=== PATIENT | male | born 1985 | race Caucasian/White ===

== ENCOUNTER 2019-04-22 12:17 | Emergency (ER) | payer MEDICARE, MEDICAID ==
[~2019-04-22] VITALS: Ht 170.2 cm; Wt 90.5 kg
[~2019-04-22 12:17] MED LIST: DIVA-76 PO; FERR-89 PO; LEVE250T55 PO; OMEP20 PO; QUET200T PO
[2019-04-22] MEDS ORDERED: ACETAMINOPHEN 500 MG TABLET PO ONE (12:30)
[2019-04-22 12:43] LABS: BASOPHILS % (AUTO) 0.3 % (0.0-2.0); EOSINOPHILS % (AUTO) 0.5 % (1.0-6.0); HEMATOCRIT 45.5 % (41-53); HEMOGLOBIN 15.8 g/dL (13.5-17.5); LYMPHOCYTES # (AUTO) 1.3 K/uL (1.0-4.8); LYMPHOCYTES % (AUTO) 23.7 % (22.0-44.0); MEAN CORPUSCULAR HEMOGLOBIN 30.5 pg (26.0-34.0); MEAN CORPUSCULAR HGB CONC 34.7 G/dL (31.0-37.0); MEAN CORPUSCULAR VOLUME 88 fL (80-100); MONOCYTES # (AUTO) 0.3 K/uL (0.1-1.0); MONOCYTES % (AUTO) 5.3 % (2.0-9.0); NEUTROPHILS # (AUTO) 3.9 K/uL (1.8-7.7); NEUTROPHILS % (AUTO) 70.2 % (40.0-70.0); PLATELET COUNT (AUTO) 192 K/uL (150-450); RED BLOOD CELL COUNT(AUTO) 5.17 MIL/uL (4.50-5.90); RED CELL DISTRIBUTION WIDTH 13.4 % (11.5-14.5)
[2019-04-22 12:50] LABS: ANION GAP 8 mmol/L (8-16); CALCIUM, TOTAL 9.4 mg/dL (8.8-10.5); CARBON DIOXIDE 28 mmol/L (22-29); CHLORIDE 102 mmol/L (98-107); CREATININE 0.83 mg/dL (0.60-1.30); GLOMERULAR FILTR. RATE CALC > 60 mL/min (>60); GLUCOSE,RANDOM 92 mg/dL (70-110); POTASSIUM 4.4 mmol/L (3.5-5.1); SODIUM SERUM 138 mmol/L (136-145); UREA NITROGEN, BLOOD 11 mg/dL (7-18)
[2019-04-22 12:56] LABS: ALANINE AMINOTRANSFERASE 57 U/L (12-78); ALBUMIN 3.8 g/dL (3.4-5.0); ALKALINE PHOSPHATASE 92 U/L (46-116); ASPARTATE AMINOTRANSFERASE 25 U/L (15-37); BILIRUBIN,TOTAL 0.5 mg/dL (0.1-1.0); TOTAL PROTEIN, SERUM 7.9 g/dL (6.4-8.2)
[2019-04-22 13:10] LABS: APPEARANCE,URINE CLEAR (CLEAR); BILIRUBIN,URINE NEGATIVE (NEGATIVE); GLUCOSE, URINE (UA) NEGATIVE (NEGATIVE); KETONES,URINE NEGATIVE (NEGATIVE); LEUKOCYTE ESTERASE ,URINE NEGATIVE (NEGATIVE); NITRATE,URINE NEGATIVE (NEGATIVE); OCCULT BLOOD,URINE NEGATIVE (NEGATIVE); PROTEIN,URINE NEGATIVE (NEGATIVE); UROBILINOGEN,URINE 0.2 mg/dL (<=1.0)
[2019-04-22 13:15] LABS: AMPHET/METH SCREEN,URINE NEGATIVE (NEGATIVE); BARBITURATE SCREEN, URINE NEGATIVE (NEGATIVE); BENZODIAZEPINES SCREEN,URINE NEGATIVE (NEGATIVE); CANNABINOID SCREEN,URINE NEGATIVE (NEGATIVE); COCAINE SCREEN,URINE NEGATIVE (NEGATIVE); METHADONE SCREEN, URINE NEGATIVE (NEGATIVE); OPIATE SCREEN,URINE NEGATIVE (NEGATIVE)
[2019-04-22 13:18] LABS: PHENCYCLIDINE SCREEN,URINE NEGATIVE (NEGATIVE)
[2019-04-22 15:44] VITALS: BP 108/64
== END 2019-04-22 16:00 | disposition home or self-care (01) ==
LOC: EMS 12:19
DX: R56.9 Unspecified convulsions (principal); E03.9 Hypothyroidism, unspecified; I10 Essential (primary) hypertension; K21.9 Gastro-esophageal reflux disease without esophagitis; F31.9 Bipolar disorder, unspecified; F41.9 Anxiety disorder, unspecified; F20.9 Schizophrenia, unspecified; Z91.011 Allergy to milk products
CPT/HCPCS: 36415; 70450; 80053; 80307; 81003; 85025; 99284; G0480

== ENCOUNTER 2019-04-25 01:54 | Inpatient (IN) | payer MEDICARE, MEDICAID ==
[~2019-04-25] VITALS: Ht 170.2 cm; Wt 87.1 kg
[2019-04-25] MEDS ORDERED: ACTIVATED CHARCOAL 50 GM/240 ML SUSPENSION PO ONE (02:00)
[2019-04-25 02:21] LABS: HEMOGLOBIN 16.1 g/dL (13.5-17.5); MEAN CORPUSCULAR HEMOGLOBIN 30.9 pg (26.0-34.0); MONOCYTES # (AUTO) 0.5 K/uL (0.1-1.0); NEUTROPHILS # (AUTO) 4.5 K/uL (1.8-7.7)
[2019-04-25 02:29] LABS: BASOPHILS % (AUTO) 0.5 % (0.0-2.0); EOSINOPHILS % (AUTO) 1.4 % (1.0-6.0); HEMATOCRIT 46.2 % (41-53); LYMPHOCYTES % (AUTO) 27.4 % (22.0-44.0); MEAN CORPUSCULAR HGB CONC 34.9 G/dL (31.0-37.0); MEAN CORPUSCULAR VOLUME 89 fL (80-100); MONOCYTES % (AUTO) 7.5 % (2.0-9.0); NEUTROPHILS % (AUTO) 63.2 % (40.0-70.0); PLATELET COUNT (AUTO) 188 K/uL (150-450); RED BLOOD CELL COUNT(AUTO) 5.21 MIL/uL (4.50-5.90); RED CELL DISTRIBUTION WIDTH 13.2 % (11.5-14.5)
[2019-04-25] MEDS ORDERED: LIDOCAINE 2% 5 ML JELLY TP ONE (02:30)
[2019-04-25] MEDS ORDERED: SODIUM CHLORIDE 0.9% 1,000 ML IV ONE (02:30)
[2019-04-25] MEDS ORDERED: LIDOCAINE 2% 5 ML JELLY ONE (02:31)
[2019-04-25 02:35] LABS: GLUCOSE,POINT OF CARE 101 MG/DL (70-110)
[2019-04-25 02:37] LABS: ANION GAP 10 mmol/L (8-16); CALCIUM, TOTAL 9.7 mg/dL (8.8-10.5); CARBON DIOXIDE 26 mmol/L (22-29); CHLORIDE 100 mmol/L (98-107); CREATININE 0.91 mg/dL (0.60-1.30); GLOMERULAR FILTR. RATE CALC > 60 mL/min (>60); GLUCOSE,RANDOM 110 mg/dL (70-110); SODIUM SERUM 136 mmol/L (136-145); UREA NITROGEN, BLOOD 12 mg/dL (7-18)
[2019-04-25 02:42] LABS: ALANINE AMINOTRANSFERASE 57 U/L (12-78); ALBUMIN 4.2 g/dL (3.4-5.0); ALKALINE PHOSPHATASE 101 U/L (46-116); ASPARTATE AMINOTRANSFERASE 29 U/L (15-37); BILIRUBIN,TOTAL 0.5 mg/dL (0.1-1.0); TOTAL PROTEIN, SERUM 8.5 g/dL (6.4-8.2)
[2019-04-25 02:43] LABS: ACETAMINOPHEN < 2 mcg/mL (10-30)
[2019-04-25 02:44] LABS: SALICYLATE 1.4 mg/dL (2.8-20.0)
[2019-04-25 06:37] LABS: ACETAMINOPHEN < 2 mcg/mL (10-30)
[2019-04-25] MEDS ORDERED: LEVE250T PO (06:41)
[2019-04-25 07:11] LABS: FREE T4 (FREE THYROXINE) 0.89 ng/dL (0.76-1.46); THYROID STIMULATING HORMONE 1.82 uIU/mL (0.36-3.74)
[2019-04-25 07:25] LABS: VALPROIC ACID < 3 mcg/mL (50-100)
[2019-04-25 08:36] LABS: APPEARANCE,URINE CLOUDY (CLEAR); BILIRUBIN,URINE NEGATIVE (NEGATIVE); GLUCOSE, URINE (UA) NEGATIVE (NEGATIVE); KETONES,URINE TRACE mg/dL (NEGATIVE); LEUKOCYTE ESTERASE ,URINE NEGATIVE (NEGATIVE); NITRATE,URINE NEGATIVE (NEGATIVE); OCCULT BLOOD,URINE NEGATIVE (NEGATIVE); PH,URINE 5.5 (5.0-8.0); PROTEIN,URINE NEGATIVE (NEGATIVE); UROBILINOGEN,URINE 0.2 mg/dL (<=1.0)
[2019-04-25 08:42] LABS: AMPHET/METH SCREEN,URINE NEGATIVE (NEGATIVE); BARBITURATE SCREEN, URINE NEGATIVE (NEGATIVE); BENZODIAZEPINES SCREEN,URINE NEGATIVE (NEGATIVE); CANNABINOID SCREEN,URINE NEGATIVE (NEGATIVE); COCAINE SCREEN,URINE NEGATIVE (NEGATIVE); METHADONE SCREEN, URINE NEGATIVE (NEGATIVE); OPIATE SCREEN,URINE NEGATIVE (NEGATIVE); PHENCYCLIDINE SCREEN,URINE NEGATIVE (NEGATIVE)
[2019-04-25 09:20] LABS: BACTERIA,URINE None Seen /HPF (None Seen); RBC,URINE None Seen /HPF (0-2); SQUAMOUS EPITHELIAL CELL,UR Few /LPF (None Seen); WBC,URINE 0-2 /HPF (0-5)
[2019-04-25] MEDS ORDERED: ZOLPIDEM TARTRATE 10 MG TABLET PO PRN (10:15)
[2019-04-25] MEDS ORDERED: HALOPERIDOL 5 MG TABLET PO PRN (10:15)
[2019-04-25] MEDS ORDERED: LORazepam 2 MG TABLET PO PRN (10:15)
[2019-04-25] MEDS ORDERED: LEVE500T53 PO (14:53)
[2019-04-25 15:59] VITALS: BP 130/101
[2019-04-25] MEDS ORDERED: PNEUMOCOCCAL VACCINE POLYVALENT 0.5 ML VIAL [PPSV23] IM ONE (17:45)
[2019-04-25] MEDS ORDERED: INFLUENZA VIRUS VACCINE QVS 2019-20 (3YR+)/PF 60 MCG/0.5 ML SYRINGE IM ONE (17:45)
[2019-04-26] MEDS: LevETIRAcetam 500 MG TABLET PO SCH ×2 (08:23→16:37)
[2019-04-26 08:46] VITALS: BP 137/89
[2019-04-26] MEDS: QUEtiapine FUMARATE 25 MG TABLET PO SCH (10:46)
[2019-04-26] MEDS ORDERED: ALBUTEROL SULFATE HFA 90 MCG/PUFF 8 GM INHALER IH PRN (14:30)
[2019-04-26] MEDS ORDERED: GuaiFENesin/D-METHORPHAN [SUGAR-FREE] 200-20MG/10 ML SYRUP UDCUP PO PRN (14:30)
[2019-04-26] MEDS ORDERED: LOPERAMIDE HCL 2 MG CAPSULE PO PRN (14:30)
[2019-04-26] MEDS ORDERED: ONDANSETRON HCL 4 MG TABLET PO PRN (14:30)
[2019-04-26] MEDS ORDERED: IBUPROFEN 400 MG TABLET PO PRN (14:30)
[2019-04-26] MEDS ORDERED: MAG HYDROX/AL HYDROX/SIMETH ES 30 ML SUSPENSION UDCUP PO PRN (14:30)
[2019-04-26] MEDS ORDERED: PETROLATUM,WHITE 28 GM JELLY TP PRN (14:30)
[2019-04-26] MEDS ORDERED: NICOTINE 14 MG/24 HOUR PATCH TD PRN (14:30)
[2019-04-26] MEDS ORDERED: MAGNESIUM HYDROXIDE SUSPENSION 30 ML UDCUP PO PRN (14:30)
[2019-04-26] MEDS ORDERED: DOCUSATE SODIUM 100 MG CAPSULE PO PRN (14:30)
[2019-04-26] MEDS ORDERED: CloNIDine HCL 0.1 MG TABLET PO PRN (14:30)
[2019-04-26] MEDS ORDERED: ACETAMINOPHEN 325 MG TABLET PO PRN (14:30)
[2019-04-26 16:00] VITALS: BP 102/60
[2019-04-26 18:23] LABS: GLUCOMETER DEV NAME(LOC) 3EX.; GLUCOSE,POINT OF CARE 94 MG/DL (70-110)
[2019-04-26] MEDS: QUEtiapine FUMARATE 200 MG TABLET PO SCH (21:30)
[2019-04-27 06:19] VITALS: BP 122/71
[2019-04-27 08:30] VITALS: BP 143/100
[2019-04-27] MEDS: QUEtiapine FUMARATE 25 MG TABLET PO SCH (08:39)
[2019-04-27] MEDS: LevETIRAcetam 500 MG TABLET PO SCH (08:40)
[2019-04-27] MEDS: LevETIRAcetam 250 MG TABLET PO SCH (16:21)
[2019-04-27 17:00] VITALS: BP 126/71
[2019-04-27] MEDS: QUEtiapine FUMARATE 200 MG TABLET PO SCH (20:14)
[2019-04-28 03:43] VITALS: BP 112/65
[2019-04-28 08:30] VITALS: BP 99/58
[2019-04-28] MEDS: LevETIRAcetam 250 MG TABLET PO SCH (09:31)
[2019-04-28] MEDS: QUEtiapine FUMARATE 25 MG TABLET PO SCH (09:31)
[2019-04-28] MEDS ORDERED: QUET200T PO (11:37)
[2019-04-28] MEDS ORDERED: QUET25TA PO (11:37)
== END 2019-04-28 15:26 | disposition home or self-care (01) | DRG 885 ==
LOC: EMS 01:57 → 3EI 13:52
PROVIDERS: ADMIT Psychiatry & Neurology Child & Adolescent Psychiatry; ATTEND Psychiatry & Neurology Child & Adolescent Psychiatry
DX: F20.0 Paranoid schizophrenia (principal); E03.9 Hypothyroidism, unspecified; G40.909 Epilepsy, unspecified, not intractable, without status epilepticus; I10 Essential (primary) hypertension; F79 Unspecified intellectual disabilities; J44.9 Chronic obstructive pulmonary disease, unspecified; K21.9 Gastro-esophageal reflux disease without esophagitis; T39.1X2A Poisoning by 4-Aminophenol derivatives, intentional self-harm, initial encounter; F29 Unspecified psychosis not due to a substance or known physiological condition; F41.9 Anxiety disorder, unspecified; Z28.21 Immunization not carried out because of patient refusal; Y92.89 Other specified places as the place of occurrence of the external cause; Z83.3 Family history of diabetes mellitus; Z82.49 Family history of ischemic heart disease and other diseases of the circulatory system; Z91.011 Allergy to milk products
CPT/HCPCS: 70450; 72125; 84439; 84443; 93005; G0480; G0481; G0482

== ENCOUNTER 2019-05-17 18:45 | Emergency (ER) | payer MEDICARE, MEDICAID ==
[~2019-05-17] VITALS: Ht 172.7 cm; Wt 81.8 kg
[~2019-05-17 18:45] MED LIST changes: -DIVA-76 PO; -FERR-89 PO; -LEVE250T55 PO; +LEVE500T53 PO; -OMEP20 PO; +QUET25TA PO
[2019-05-17 20:57] VITALS: BP 120/100
[2019-05-17 21:51] LABS: APPEARANCE,URINE CLEAR (CLEAR); BILIRUBIN,URINE NEGATIVE (NEGATIVE); GLUCOSE, URINE (UA) NEGATIVE (NEGATIVE); KETONES,URINE NEGATIVE (NEGATIVE); LEUKOCYTE ESTERASE ,URINE NEGATIVE (NEGATIVE); NITRATE,URINE NEGATIVE (NEGATIVE); OCCULT BLOOD,URINE NEGATIVE (NEGATIVE); PROTEIN,URINE NEGATIVE (NEGATIVE)
[2019-05-17 21:55] LABS: AMPHET/METH SCREEN,URINE NEGATIVE (NEGATIVE); BARBITURATE SCREEN, URINE NEGATIVE (NEGATIVE); BENZODIAZEPINES SCREEN,URINE POSITIVE (NEGATIVE); CANNABINOID SCREEN,URINE NEGATIVE (NEGATIVE); COCAINE SCREEN,URINE NEGATIVE (NEGATIVE); METHADONE SCREEN, URINE NEGATIVE (NEGATIVE); OPIATE SCREEN,URINE NEGATIVE (NEGATIVE); PHENCYCLIDINE SCREEN,URINE NEGATIVE (NEGATIVE)
== END 2019-05-17 22:00 | disposition left against medical advice (07) ==
LOC: EMS 18:45
DX: G40.909 Epilepsy, unspecified, not intractable, without status epilepticus (principal); F31.9 Bipolar disorder, unspecified; F41.9 Anxiety disorder, unspecified; K21.9 Gastro-esophageal reflux disease without esophagitis; I10 Essential (primary) hypertension; E03.9 Hypothyroidism, unspecified; F20.9 Schizophrenia, unspecified; Z91.011 Allergy to milk products

== ENCOUNTER 2019-07-22 16:16 | Inpatient (IN) | payer MEDICARE, MEDICAID ==
[~2019-07-22] VITALS: Ht 170.2 cm; Wt 89.8 kg
[2019-07-22 18:46] LABS: BASOPHILS % (AUTO) 0.5 % (0.0-2.0); EOSINOPHILS % (AUTO) 1.2 % (1.0-6.0); HEMATOCRIT 46.4 % (41-53); HEMOGLOBIN 15.9 g/dL (13.5-17.5); LYMPHOCYTES # (AUTO) 2.1 K/uL (1.0-4.8); LYMPHOCYTES % (AUTO) 33.4 % (22.0-44.0); MEAN CORPUSCULAR HEMOGLOBIN 30.6 pg (26.0-34.0); MEAN CORPUSCULAR HGB CONC 34.3 G/dL (31.0-37.0); MEAN CORPUSCULAR VOLUME 89 fL (80-100); MONOCYTES # (AUTO) 0.5 K/uL (0.1-1.0); MONOCYTES % (AUTO) 8.2 % (2.0-9.0); NEUTROPHILS # (AUTO) 3.6 K/uL (1.8-7.7); NEUTROPHILS % (AUTO) 56.7 % (40.0-70.0); PLATELET COUNT (AUTO) 212 K/uL (150-450); RED CELL DISTRIBUTION WIDTH 13.3 % (11.5-14.5)
[2019-07-22 18:56] LABS: ALANINE AMINOTRANSFERASE 71 U/L (12-78); ALBUMIN 4.1 g/dL (3.4-5.0); ALKALINE PHOSPHATASE 97 U/L (46-116); ANION GAP 8 mmol/L (8-16); ASPARTATE AMINOTRANSFERASE 30 U/L (15-37); BILIRUBIN,TOTAL 0.4 mg/dL (0.1-1.0); CALCIUM, TOTAL 10.2 mg/dL (8.8-10.5); CARBON DIOXIDE 28 mmol/L (22-29); CHLORIDE 103 mmol/L (98-107); CREATININE 0.99 mg/dL (0.60-1.30); GLOMERULAR FILTR. RATE CALC > 60 mL/min (>60); GLUCOSE,RANDOM 91 mg/dL (70-110); POTASSIUM 4.2 mmol/L (3.5-5.1); SODIUM SERUM 139 mmol/L (136-145); TOTAL PROTEIN, SERUM 8.1 g/dL (6.4-8.2)
[2019-07-22 19:02] LABS: UREA NITROGEN, BLOOD 12 mg/dL (7-18)
[2019-07-22] MEDS ORDERED: HALOPERIDOL 5 MG TABLET PO PRN (20:00)
[2019-07-22] MEDS ORDERED: LORazepam 2 MG TABLET PO PRN (20:00)
[2019-07-22] MEDS ORDERED: ZOLPIDEM TARTRATE 10 MG TABLET PO PRN (20:00)
[2019-07-23] VITALS (9 sets, daily range): BP systolic 109–134; BP diastolic 64–88
[2019-07-23] MEDS ORDERED: PNEUMOCOCCAL VACCINE POLYVALENT 0.5 ML VIAL [PPSV23] IM ONE (04:45)
[2019-07-23] MEDS: LevETIRAcetam 250 MG TABLET PO SCH ×2 (11:00→16:36)
[2019-07-23] MEDS ORDERED: MIRTAZAPINE 15 MG TABLET PO SCH (21:00)
[2019-07-24 01:38] VITALS: BP 100/74
[2019-07-24 08:11] VITALS: BP 119/62
[2019-07-24] MEDS: LevETIRAcetam 250 MG TABLET PO SCH ×2 (08:47→16:29)
[2019-07-24] MEDS ORDERED: ARIPiprazole 5 MG TABLET PO SCH (09:00)
[2019-07-24 16:08] VITALS: BP 115/66
[2019-07-24] MEDS: MIRTAZAPINE 30 MG TABLET PO SCH (20:30)
[2019-07-25 05:58] VITALS: BP 111/67
[2019-07-25] MEDS: ARIPiprazole 10 MG TABLET PO SCH (08:27)
[2019-07-25] MEDS: LevETIRAcetam 250 MG TABLET PO SCH ×2 (08:27→16:33)
[2019-07-25 08:38] VITALS: BP 124/72
[2019-07-25] MEDS ORDERED: BISACODYL 5 MG EC TABLET PO PRN (09:00)
[2019-07-25 16:04] VITALS: BP 113/75
[2019-07-25] MEDS: MIRTAZAPINE 30 MG TABLET PO SCH (20:35)
[2019-07-26 01:07] VITALS: BP 122/71
[2019-07-26 08:06] VITALS: BP 117/74
[2019-07-26 08:39] LABS: APPEARANCE,URINE CLEAR (CLEAR); BILIRUBIN,URINE NEGATIVE (NEGATIVE); GLUCOSE, URINE (UA) NEGATIVE (NEGATIVE); KETONES,URINE NEGATIVE (NEGATIVE); LEUKOCYTE ESTERASE ,URINE NEGATIVE (NEGATIVE); NITRATE,URINE NEGATIVE (NEGATIVE); OCCULT BLOOD,URINE NEGATIVE (NEGATIVE); PH,URINE 5.5 (5.0-8.0); PROTEIN,URINE NEGATIVE (NEGATIVE); UROBILINOGEN,URINE 0.2 mg/dL (<=1.0)
[2019-07-26 08:44] LABS: AMPHET/METH SCREEN,URINE NEGATIVE (NEGATIVE); BARBITURATE SCREEN, URINE NEGATIVE (NEGATIVE); BENZODIAZEPINES SCREEN,URINE NEGATIVE (NEGATIVE); CANNABINOID SCREEN,URINE NEGATIVE (NEGATIVE); COCAINE SCREEN,URINE NEGATIVE (NEGATIVE); METHADONE SCREEN, URINE NEGATIVE (NEGATIVE); OPIATE SCREEN,URINE NEGATIVE (NEGATIVE); PHENCYCLIDINE SCREEN,URINE NEGATIVE (NEGATIVE)
[2019-07-26] MEDS: ARIPiprazole 10 MG TABLET PO SCH (08:48)
[2019-07-26] MEDS: LevETIRAcetam 250 MG TABLET PO SCH ×2 (08:48→16:29)
[2019-07-26 16:04] VITALS: BP 122/82
[2019-07-26] MEDS: MIRTAZAPINE 30 MG TABLET PO SCH (20:46)
[2019-07-27 06:21] VITALS: BP 124/85
[2019-07-27 08:10] VITALS: BP 140/90
[2019-07-27] MEDS: LevETIRAcetam 250 MG TABLET PO SCH (08:30)
[2019-07-27] MEDS ORDERED: ARIPiprazole 15 MG TABLET PO SCH (09:00)
[2019-07-27] MEDS ORDERED: MIRT30 PO (09:22)
[2019-07-27] MEDS ORDERED: ARIP15TA2 PO (09:22)
== END 2019-07-27 13:25 | disposition home or self-care (01) | DRG 885 ==
LOC: EMS 16:18 → 3EX 20:30 → B2X 21:30
PROVIDERS: ADMIT Psychiatry & Neurology Psychiatry; ATTEND Psychiatry & Neurology Psychiatry
DX: F25.1 Schizoaffective disorder, depressive type (principal); E03.9 Hypothyroidism, unspecified; E78.5 Hyperlipidemia, unspecified; F41.9 Anxiety disorder, unspecified; I10 Essential (primary) hypertension; J45.909 Unspecified asthma, uncomplicated; K59.00 Constipation, unspecified; R56.9 Unspecified convulsions; Z79.899 Other long term (current) drug therapy; Z87.891 Personal history of nicotine dependence; Z28.21 Immunization not carried out because of patient refusal
CPT/HCPCS: G0480

== ENCOUNTER 2019-07-30 16:05 | Emergency (ER) | payer MEDICARE, MEDICAID ==
[~2019-07-30] VITALS: Ht 172.7 cm; Wt 91.4 kg
[~2019-07-30 16:05] MED LIST changes: +ARIP15TA2 PO; +MIRT30 PO; -QUET200T PO; -QUET25TA PO
[2019-07-30] MEDS ORDERED: LevETIRAcetam 1,000 MG in DEXTROSE 5%-WATER 100 ML IV ONE (18:00)
[2019-07-30] MEDS ORDERED: LevETIRAcetam 500 MG TABLET PO ONE (18:00)
[2019-07-30 18:05] LABS: BASOPHILS % (AUTO) 0.5 % (0.0-2.0); EOSINOPHILS % (AUTO) 1.4 % (1.0-6.0); HEMATOCRIT 45.6 % (41-53); HEMOGLOBIN 16.1 g/dL (13.5-17.5); LYMPHOCYTES # (AUTO) 2.3 K/uL (1.0-4.8); MEAN CORPUSCULAR HEMOGLOBIN 31.4 pg (26.0-34.0); MEAN CORPUSCULAR HGB CONC 35.2 G/dL (31.0-37.0); MEAN CORPUSCULAR VOLUME 89 fL (80-100); MONOCYTES # (AUTO) 0.6 K/uL (0.1-1.0); MONOCYTES % (AUTO) 7.2 % (2.0-9.0); NEUTROPHILS # (AUTO) 5.1 K/uL (1.8-7.7); NEUTROPHILS % (AUTO) 62.9 % (40.0-70.0); RED BLOOD CELL COUNT(AUTO) 5.12 MIL/uL (4.50-5.90); RED CELL DISTRIBUTION WIDTH 13.3 % (11.5-14.5)
[2019-07-30 18:52] LABS: PLATELET COUNT (AUTO) 196 K/uL (150-450); PLATELET MORPHOLOGY COMMENT LARGE PLTS PRESENT
[2019-07-30 18:53] LABS: ANION GAP 8 mmol/L (8-16); CALCIUM, TOTAL 9.4 mg/dL (8.8-10.5); CARBON DIOXIDE 29 mmol/L (22-29); CHLORIDE 103 mmol/L (98-107); CREATININE 0.98 mg/dL (0.60-1.30); GLOMERULAR FILTR. RATE CALC > 60 mL/min (>60); GLUCOSE,RANDOM 100 mg/dL (70-110); POTASSIUM 4.1 mmol/L (3.5-5.1); SODIUM SERUM 140 mmol/L (136-145); UREA NITROGEN, BLOOD 16 mg/dL (7-18)
[2019-07-30 19:00] LABS: ALANINE AMINOTRANSFERASE 70 U/L (12-78); ALBUMIN 4.1 g/dL (3.4-5.0); ALKALINE PHOSPHATASE 105 U/L (46-116); BILIRUBIN,TOTAL 0.3 mg/dL (0.1-1.0); TOTAL PROTEIN, SERUM 7.9 g/dL (6.4-8.2)
[2019-07-30 19:11] LABS: ASPARTATE AMINOTRANSFERASE 37 U/L (15-37)
[2019-07-30 19:49] VITALS: BP 138/81
== END 2019-07-30 19:57 | disposition home or self-care (01) ==
LOC: EMS 16:07
DX: G40.909 Epilepsy, unspecified, not intractable, without status epilepticus (principal); E03.9 Hypothyroidism, unspecified; I10 Essential (primary) hypertension; K21.9 Gastro-esophageal reflux disease without esophagitis; F20.9 Schizophrenia, unspecified; F41.9 Anxiety disorder, unspecified; F31.9 Bipolar disorder, unspecified; F17.210 Nicotine dependence, cigarettes, uncomplicated; Z79.899 Other long term (current) drug therapy; Z91.011 Allergy to milk products; Z98.890 Other specified postprocedural states
CPT/HCPCS: 99406; J0712; J7060

== ENCOUNTER 2019-10-09 18:44 | Inpatient (IN) | payer MEDICARE, MEDICAID ==
[~2019-10-09] VITALS: Ht 170.2 cm; Wt 88.0 kg
[2019-10-09] MEDS ORDERED: LevETIRAcetam 500 MG TABLET PO ONE (19:15)
[2019-10-09 19:40] LABS: BASOPHILS % (AUTO) 0.5 % (0.0-2.0); EOSINOPHILS % (AUTO) 1.2 % (1.0-6.0); HEMATOCRIT 40.4 % (41-53); HEMOGLOBIN 13.6 g/dL (13.5-17.5); LYMPHOCYTES # (AUTO) 1.8 K/uL (1.0-4.8); LYMPHOCYTES % (AUTO) 30.5 % (22.0-44.0); MEAN CORPUSCULAR HEMOGLOBIN 30.3 pg (26.0-34.0); MEAN CORPUSCULAR HGB CONC 33.8 G/dL (31.0-37.0); MEAN CORPUSCULAR VOLUME 90 fL (80-100); MONOCYTES # (AUTO) 0.5 K/uL (0.1-1.0); MONOCYTES % (AUTO) 8.3 % (2.0-9.0); NEUTROPHILS # (AUTO) 3.5 K/uL (1.8-7.7); NEUTROPHILS % (AUTO) 59.5 % (40.0-70.0); PLATELET COUNT (AUTO) 203 K/uL (150-450); RED BLOOD CELL COUNT(AUTO) 4.51 MIL/uL (4.50-5.90); RED CELL DISTRIBUTION WIDTH 13.4 % (11.5-14.5)
[2019-10-09 19:53] LABS: ANION GAP 8 mmol/L (8-16); CALCIUM, TOTAL 8.9 mg/dL (8.8-10.5); CARBON DIOXIDE 28 mmol/L (22-29); CHLORIDE 105 mmol/L (98-107); CREATININE 0.82 mg/dL (0.60-1.30); GLOMERULAR FILTR. RATE CALC > 60 mL/min (>60); GLUCOSE,RANDOM 89 mg/dL (70-110); POTASSIUM 4.4 mmol/L (3.5-5.1); SODIUM SERUM 141 mmol/L (136-145); UREA NITROGEN, BLOOD 12 mg/dL (7-18)
[2019-10-09 19:59] LABS: ALANINE AMINOTRANSFERASE 41 U/L (12-78); ALBUMIN 3.7 g/dL (3.4-5.0); ALKALINE PHOSPHATASE 83 U/L (46-116); ASPARTATE AMINOTRANSFERASE 18 U/L (15-37); BILIRUBIN,TOTAL 0.2 mg/dL (0.1-1.0); TOTAL PROTEIN, SERUM 7.5 g/dL (6.4-8.2)
[2019-10-09 20:38] LABS: PLATELET MORPHOLOGY COMMENT GIANT PLTS PRESENT
[2019-10-09] MEDS ORDERED: LORazepam 2 MG TABLET PO PRN (21:15)
[2019-10-09] MEDS ORDERED: HALOPERIDOL 5 MG TABLET PO PRN (21:15)
[2019-10-09] MEDS ORDERED: ZOLPIDEM TARTRATE 10 MG TABLET PO PRN (21:15)
[2019-10-10] VITALS (11 sets, daily range): BP systolic 91–160; BP diastolic 57–90
[2019-10-10] MEDS ORDERED: LevETIRAcetam 250 MG TABLET PO SCH (01:30)
[2019-10-10] MEDS ORDERED: LORazepam 2 MG/ML VIAL IM PRN (01:30)
[2019-10-10 01:47] LABS: GLUCOMETER DEV NAME(LOC) 3E.I 2; GLUCOSE,POINT OF CARE 81 MG/DL (70-110)
[2019-10-10] MEDS: ARIPiprazole 15 MG TABLET PO SCH (09:51)
[2019-10-10] MEDS: LevETIRAcetam 250 MG TABLET PO SCH ×2 (09:51→16:24)
[2019-10-10] MEDS ORDERED: PETROLATUM,WHITE 28 GM JELLY TP PRN (12:30)
[2019-10-10] MEDS ORDERED: MAGNESIUM HYDROXIDE SUSPENSION 30 ML UDCUP PO PRN (12:30)
[2019-10-10] MEDS ORDERED: ALBUTEROL SULFATE HFA 90 MCG/PUFF 8 GM INHALER IH PRN (12:30)
[2019-10-10] MEDS ORDERED: GuaiFENesin/D-METHORPHAN [SUGAR-FREE] 200-20MG/10 ML SYRUP UDCUP PO PRN (12:30)
[2019-10-10] MEDS ORDERED: DOCUSATE SODIUM 100 MG CAPSULE PO PRN (12:30)
[2019-10-10] MEDS ORDERED: IBUPROFEN 400 MG TABLET PO PRN (12:30)
[2019-10-10] MEDS ORDERED: LOPERAMIDE HCL 2 MG CAPSULE PO PRN (12:30)
[2019-10-10] MEDS ORDERED: ACETAMINOPHEN 325 MG TABLET PO PRN (12:30)
[2019-10-10] MEDS ORDERED: CloNIDine HCL 0.1 MG TABLET PO PRN (12:30)
[2019-10-10] MEDS ORDERED: ONDANSETRON HCL 4 MG TABLET PO PRN (12:30)
[2019-10-10] MEDS ORDERED: MAG HYDROX/AL HYDROX/SIMETH ES 30 ML SUSPENSION UDCUP PO PRN (12:30)
[2019-10-10] MEDS ORDERED: NICOTINE 14 MG/24 HOUR PATCH TD PRN (12:30)
[2019-10-10] MEDS: MIRTAZAPINE 30 MG TABLET PO SCH (20:44)
[2019-10-11] MEDS: LevETIRAcetam 250 MG TABLET PO SCH ×2 (08:56→16:31)
[2019-10-11] MEDS: ARIPiprazole 15 MG TABLET PO SCH (08:56)
[2019-10-11] MEDS: ESCITALOPRAM OXALATE 10 MG TABLET PO SCH (10:49)
[2019-10-11 17:25] VITALS: BP 119/85
[2019-10-11] MEDS: MIRTAZAPINE 30 MG TABLET PO SCH (20:32)
[2019-10-12 09:05] VITALS: BP 112/70
[2019-10-12] MEDS: LevETIRAcetam 250 MG TABLET PO SCH (09:49)
[2019-10-12] MEDS: ARIPiprazole 15 MG TABLET PO SCH (09:49)
[2019-10-12] MEDS: ESCITALOPRAM OXALATE 10 MG TABLET PO SCH (09:49)
[2019-10-12] MEDS ORDERED: MIRT30 PO (11:57)
[2019-10-12] MEDS ORDERED: ESCI10TA PO (11:57)
[2019-10-12] MEDS ORDERED: ARIP15TA2 PO (11:57)
== END 2019-10-12 13:45 | disposition home or self-care (01) | DRG 885 ==
LOC: EMS 18:44 → 3EI 10-10 00:30
PROVIDERS: ADMIT Psychiatry & Neurology Psychiatry; ATTEND Psychiatry & Neurology Psychiatry
DX: F25.9 Schizoaffective disorder, unspecified (principal); R45.851 Suicidal ideations; G40.89 Other seizures; E03.9 Hypothyroidism, unspecified; K21.9 Gastro-esophageal reflux disease without esophagitis; I10 Essential (primary) hypertension; F17.200 Nicotine dependence, unspecified, uncomplicated; J45.909 Unspecified asthma, uncomplicated; F31.9 Bipolar disorder, unspecified; F41.9 Anxiety disorder, unspecified
CPT/HCPCS: G0480

== ENCOUNTER 2019-11-10 02:27 | Emergency (ER) | payer MEDICARE, MEDICAID ==
[~2019-11-10] VITALS: Ht 170.2 cm; Wt 68.2 kg
[~2019-11-10 02:27] MED LIST changes: +ESCI-8 PO
[2019-11-10 04:06] LABS: BASOPHILS % (AUTO) 1.4 % (0.0-2.0); EOSINOPHILS % (AUTO) 4.2 % (1.0-6.0); HEMOGLOBIN 15.3 g/dL (13.5-17.5); LYMPHOCYTES # (AUTO) 1.9 K/uL (1.0-4.8); LYMPHOCYTES % (AUTO) 30.2 % (22.0-44.0); MEAN CORPUSCULAR HEMOGLOBIN 30.1 pg (26.0-34.0); MEAN CORPUSCULAR HGB CONC 33.2 G/dL (31.0-37.0); MEAN CORPUSCULAR VOLUME 91 fL (80-100); MONOCYTES # (AUTO) 0.6 K/uL (0.1-1.0); MONOCYTES % (AUTO) 9.8 % (2.0-9.0); NEUTROPHILS # (AUTO) 3.4 K/uL (1.8-7.7); NEUTROPHILS % (AUTO) 54.4 % (40.0-70.0); PLATELET COUNT (AUTO) 198 K/uL (150-450); RED BLOOD CELL COUNT(AUTO) 5.07 MIL/uL (4.50-5.90); RED CELL DISTRIBUTION WIDTH 13.8 % (11.5-14.5)
[2019-11-10 04:26] LABS: ANION GAP 9 mmol/L (8-16); CALCIUM, TOTAL 9.4 mg/dL (8.8-10.5); CARBON DIOXIDE 29 mmol/L (22-29); CHLORIDE 105 mmol/L (98-107); CREATININE 0.73 mg/dL (0.60-1.30); GLOMERULAR FILTR. RATE CALC > 60 mL/min (>60); GLUCOSE,RANDOM 92 mg/dL (70-110); POTASSIUM 4.1 mmol/L (3.5-5.1); SODIUM SERUM 143 mmol/L (136-145)
[2019-11-10 04:33] LABS: ALANINE AMINOTRANSFERASE 49 U/L (12-78); ALBUMIN 4.1 g/dL (3.4-5.0); ALKALINE PHOSPHATASE 90 U/L (46-116); ASPARTATE AMINOTRANSFERASE 22 U/L (15-37); BILIRUBIN,TOTAL 0.4 mg/dL (0.1-1.0); TOTAL PROTEIN, SERUM 7.9 g/dL (6.4-8.2)
[2019-11-10 05:06] LABS: UREA NITROGEN, BLOOD 15 mg/dL (7-18)
[2019-11-10 05:25] VITALS: BP 147/94
== END 2019-11-10 06:18 | disposition home or self-care (01) ==
LOC: EMS 02:27
DX: R07.89 Other chest pain (principal); F20.9 Schizophrenia, unspecified; F41.9 Anxiety disorder, unspecified; J45.909 Unspecified asthma, uncomplicated; F31.9 Bipolar disorder, unspecified; K21.9 Gastro-esophageal reflux disease without esophagitis; I10 Essential (primary) hypertension; F17.210 Nicotine dependence, cigarettes, uncomplicated; Z91.011 Allergy to milk products
CPT/HCPCS: 93005

== ENCOUNTER 2020-09-28 20:55 | Emergency (ER) | payer MEDICARE, MEDICAID ==
[~2020-09-28] VITALS: Ht 165.1 cm; Wt 86.4 kg
[2020-09-28] MEDS ORDERED: TRAZ-252 PO (21:25)
[2020-09-28 21:51] LABS: BASOPHILS % (AUTO) 0.3 % (0.0-2.0); EOSINOPHILS % (AUTO) 2.8 % (1.0-6.0); HEMATOCRIT 40.2 % (41-53); HEMOGLOBIN 13.6 g/dL (13.5-17.5); LYMPHOCYTES # (AUTO) 1.7 K/uL (1.0-4.8); LYMPHOCYTES % (AUTO) 35.1 % (22.0-44.0); MEAN CORPUSCULAR HEMOGLOBIN 30.8 pg (26.0-34.0); MEAN CORPUSCULAR HGB CONC 33.8 G/dL (31.0-37.0); MEAN CORPUSCULAR VOLUME 91 fL (80-100); MONOCYTES # (AUTO) 0.5 K/uL (0.1-1.0); MONOCYTES % (AUTO) 10.4 % (2.0-9.0); NEUTROPHILS # (AUTO) 2.5 K/uL (1.8-7.7); NEUTROPHILS % (AUTO) 51.4 % (40.0-70.0); PLATELET COUNT (AUTO) 159 K/uL (150-450); RED BLOOD CELL COUNT(AUTO) 4.42 MIL/uL (4.50-5.90); RED CELL DISTRIBUTION WIDTH 13.3 % (11.5-14.5)
[2020-09-28 22:02] LABS: ANION GAP 10 mmol/L (8-16); CALCIUM, TOTAL 8.9 mg/dL (8.8-10.5); CARBON DIOXIDE 26 mmol/L (22-29); CHLORIDE 106 mmol/L (98-107); CREATININE 0.83 mg/dL (0.60-1.30); GLOMERULAR FILTR. RATE CALC > 60 mL/min (>60); GLUCOSE,RANDOM 107 mg/dL (70-110); POTASSIUM 3.8 mmol/L (3.5-5.1); SODIUM SERUM 142 mmol/L (136-145); UREA NITROGEN, BLOOD 16 mg/dL (7-18)
[2020-09-28 22:08] LABS: ALANINE AMINOTRANSFERASE 56 U/L (12-78); ALBUMIN 3.5 g/dL (3.4-5.0); ALKALINE PHOSPHATASE 94 U/L (46-116); ASPARTATE AMINOTRANSFERASE 27 U/L (15-37); BILIRUBIN,TOTAL 0.2 mg/dL (0.1-1.0); TOTAL PROTEIN, SERUM 7.2 g/dL (6.4-8.2)
[2020-09-28 22:59] LABS: AMPHET/METH SCREEN,URINE NEGATIVE (NEGATIVE); BARBITURATE SCREEN, URINE NEGATIVE (NEGATIVE); BENZODIAZEPINES SCREEN,URINE NEGATIVE (NEGATIVE); CANNABINOID SCREEN,URINE NEGATIVE (NEGATIVE); COCAINE SCREEN,URINE NEGATIVE (NEGATIVE); METHADONE SCREEN, URINE NEGATIVE (NEGATIVE); OPIATE SCREEN,URINE NEGATIVE (NEGATIVE)
[2020-09-28 23:06] LABS: PHENCYCLIDINE SCREEN,URINE NEGATIVE (NEGATIVE)
[2020-09-28 23:10] VITALS: BP 132/84
[2020-09-28] MEDS ORDERED: LevETIRAcetam 500 MG TABLET PO ONE (23:15)
== END 2020-09-28 23:30 | disposition home or self-care (01) ==
LOC: EMS 21:01
DX: G40.909 Epilepsy, unspecified, not intractable, without status epilepticus (principal); J45.909 Unspecified asthma, uncomplicated; F41.9 Anxiety disorder, unspecified; F31.9 Bipolar disorder, unspecified; K21.9 Gastro-esophageal reflux disease without esophagitis; I10 Essential (primary) hypertension; F20.9 Schizophrenia, unspecified; F17.210 Nicotine dependence, cigarettes, uncomplicated; Z91.018 Allergy to other foods
CPT/HCPCS: 36415; 80053; 80307; 85025; 99283; G0480

== ENCOUNTER 2020-09-29 21:23 | Emergency (ER) | payer MEDICARE, MEDICAID ==
[~2020-09-29] VITALS: Ht 170.2 cm; Wt 63.6 kg
[~2020-09-29 21:23] MED LIST changes: -ARIP15TA2 PO; -ESCI-8 PO; -MIRT30 PO; +TRAZ-252 PO
[2020-09-29 22:26] VITALS: BP 121/85
[2020-09-30 00:41] LABS: BASOPHILS % (AUTO) 0.5 % (0.0-2.0); EOSINOPHILS % (AUTO) 3.3 % (1.0-6.0); HEMATOCRIT 42.5 % (41-53); HEMOGLOBIN 14.5 g/dL (13.5-17.5); LYMPHOCYTES # (AUTO) 2.5 K/uL (1.0-4.8); LYMPHOCYTES % (AUTO) 43.1 % (22.0-44.0); MEAN CORPUSCULAR HEMOGLOBIN 30.9 pg (26.0-34.0); MEAN CORPUSCULAR VOLUME 91 fL (80-100); MONOCYTES # (AUTO) 0.6 K/uL (0.1-1.0); MONOCYTES % (AUTO) 10.3 % (2.0-9.0); NEUTROPHILS # (AUTO) 2.4 K/uL (1.8-7.7); NEUTROPHILS % (AUTO) 42.8 % (40.0-70.0); PLATELET COUNT (AUTO) 186 K/uL (150-450); RED BLOOD CELL COUNT(AUTO) 4.67 MIL/uL (4.50-5.90); RED CELL DISTRIBUTION WIDTH 13.4 % (11.5-14.5)
[2020-09-30 01:12] LABS: ANION GAP 8 mmol/L (8-16); CALCIUM, TOTAL 9.4 mg/dL (8.8-10.5); CARBON DIOXIDE 29 mmol/L (22-29); CHLORIDE 104 mmol/L (98-107); CREATININE 0.86 mg/dL (0.60-1.30); GLOMERULAR FILTR. RATE CALC > 60 mL/min (>60); GLUCOSE,RANDOM 99 mg/dL (70-110); POTASSIUM 4.2 mmol/L (3.5-5.1); SODIUM SERUM 141 mmol/L (136-145); UREA NITROGEN, BLOOD 14 mg/dL (7-18)
[2020-09-30 01:18] LABS: ALANINE AMINOTRANSFERASE 57 U/L (12-78); ALBUMIN 3.5 g/dL (3.4-5.0); ALKALINE PHOSPHATASE 103 U/L (46-116); ASPARTATE AMINOTRANSFERASE 29 U/L (15-37); BILIRUBIN,TOTAL 0.3 mg/dL (0.1-1.0); TOTAL PROTEIN, SERUM 7.6 g/dL (6.4-8.2)
== END 2020-09-30 02:33 | disposition home or self-care (01) ==
LOC: EMS 21:26
DX: G40.909 Epilepsy, unspecified, not intractable, without status epilepticus (principal); F41.9 Anxiety disorder, unspecified; F31.9 Bipolar disorder, unspecified; J45.909 Unspecified asthma, uncomplicated; K21.9 Gastro-esophageal reflux disease without esophagitis; I10 Essential (primary) hypertension; F20.9 Schizophrenia, unspecified; F17.210 Nicotine dependence, cigarettes, uncomplicated; Z91.018 Allergy to other foods
CPT/HCPCS: 80053; 85025; 99283; G0482

== ENCOUNTER 2020-10-01 21:40 | Emergency (ER) | payer MEDICARE, MEDICAID ==
[~2020-10-01] VITALS: Ht 170.2 cm; Wt 77.3 kg
[2020-10-02 00:08] VITALS: BP 150/90
== END 2020-10-01 23:10 | disposition home or self-care (01) ==
LOC: EMS 21:46
DX: F44.5 Conversion disorder with seizures or convulsions (principal)
CPT/HCPCS: 99283

== ENCOUNTER 2021-02-15 22:57 | Inpatient (IN) | payer MEDICARE, MEDICAID ==
[~2021-02-15] VITALS: Ht 170.2 cm; Wt 89.9 kg
[2021-02-16] VITALS (8 sets, daily range): BP systolic 108–127; BP diastolic 72–85
[2021-02-16 00:47] LABS: BASOPHILS % (AUTO) 0.5 % (0.0-2.0); EOSINOPHILS % (AUTO) 2.1 % (1.0-6.0); HEMATOCRIT 44.5 % (41-53); HEMOGLOBIN 15.1 g/dL (13.5-17.5); LYMPHOCYTES # (AUTO) 2.5 K/uL (1.0-4.8); LYMPHOCYTES % (AUTO) 34.6 % (22.0-44.0); MEAN CORPUSCULAR HEMOGLOBIN 30.7 pg (26.0-34.0); MEAN CORPUSCULAR VOLUME 90 fL (80-100); MONOCYTES # (AUTO) 0.8 K/uL (0.1-1.0); MONOCYTES % (AUTO) 10.6 % (2.0-9.0); NEUTROPHILS # (AUTO) 3.8 K/uL (1.8-7.7); NEUTROPHILS % (AUTO) 52.2 % (40.0-70.0); PLATELET COUNT (AUTO) 263 K/uL (150-450); RED BLOOD CELL COUNT(AUTO) 4.93 MIL/uL (4.50-5.90); RED CELL DISTRIBUTION WIDTH 13.1 % (11.5-14.5)
[2021-02-16 00:57] LABS: ANION GAP 10 mmol/L (8-16); CALCIUM, TOTAL 9.6 mg/dL (8.8-10.5); CARBON DIOXIDE 26 mmol/L (22-29); CHLORIDE 104 mmol/L (98-107); CREATININE 0.81 mg/dL (0.60-1.30); GLOMERULAR FILTR. RATE CALC > 60 mL/min (>60); GLUCOSE,RANDOM 96 mg/dL (70-110); POTASSIUM 3.9 mmol/L (3.5-5.1); SODIUM SERUM 140 mmol/L (136-145); UREA NITROGEN, BLOOD 16 mg/dL (7-18)
[2021-02-16 01:02] LABS: ALANINE AMINOTRANSFERASE 54 U/L (12-78); ALBUMIN 4.2 g/dL (3.4-5.0); ALKALINE PHOSPHATASE 108 U/L (46-116); ASPARTATE AMINOTRANSFERASE 25 U/L (15-37); BILIRUBIN,TOTAL 0.6 mg/dL (0.1-1.0); TOTAL PROTEIN, SERUM 8.7 g/dL (6.4-8.2)
[2021-02-16] MEDS ORDERED: LORazepam 2 MG TABLET PO ONE (02:15)
[2021-02-16] MEDS ORDERED: HALOPERIDOL LACTATE 5 MG/ML VIAL IVP ONE (02:15)
[2021-02-16 02:21] LABS: AMPHET/METH SCREEN,URINE NEGATIVE (NEGATIVE); BARBITURATE SCREEN, URINE NEGATIVE (NEGATIVE); BENZODIAZEPINES SCREEN,URINE NEGATIVE (NEGATIVE); CANNABINOID SCREEN,URINE NEGATIVE (NEGATIVE); COCAINE SCREEN,URINE NEGATIVE (NEGATIVE); METHADONE SCREEN, URINE NEGATIVE (NEGATIVE); OPIATE SCREEN,URINE NEGATIVE (NEGATIVE); PHENCYCLIDINE SCREEN,URINE NEGATIVE (NEGATIVE)
[2021-02-16 02:23] LABS: COVID AG,FIA SOURCE NASOPHARYNGEAL
[2021-02-16] MEDS ORDERED: HALOPERIDOL 5 MG TABLET ONE (02:34)
[2021-02-16] MEDS ORDERED: HALOPERIDOL 5 MG TABLET PO ONE (02:45)
[2021-02-16] MEDS ORDERED: ZOLPIDEM TARTRATE 10 MG TABLET PO PRN (03:15)
[2021-02-16] MEDS ORDERED: IBUPROFEN 400 MG TABLET PO PRN (08:00)
[2021-02-16] MEDS ORDERED: DOCUSATE SODIUM 100 MG CAPSULE PO PRN (08:00)
[2021-02-16] MEDS ORDERED: MAGNESIUM HYDROXIDE SUSPENSION 30 ML UDCUP PO PRN (08:00)
[2021-02-16] MEDS ORDERED: ACETAMINOPHEN 325 MG TABLET PO PRN (08:00)
[2021-02-16] MEDS ORDERED: GuaiFENesin/D-METHORPHAN [SUGAR-FREE] 200-20MG/10 ML SYRUP UDCUP PO PRN (08:00)
[2021-02-16] MEDS ORDERED: PETROLATUM,WHITE 28 GM JELLY TP PRN (08:00)
[2021-02-16] MEDS ORDERED: ALBUTEROL SULFATE HFA 90 MCG/PUFF 8 GM INHALER IH PRN (08:00)
[2021-02-16] MEDS ORDERED: ONDANSETRON HCL 4 MG TABLET PO PRN (08:00)
[2021-02-16] MEDS ORDERED: NICOTINE 14 MG/24 HOUR PATCH TD PRN (08:00)
[2021-02-16] MEDS ORDERED: MAG HYDROX/AL HYDROX/SIMETH ES 30 ML SUSPENSION UDCUP PO PRN (08:00)
[2021-02-16] MEDS ORDERED: LOPERAMIDE HCL 2 MG CAPSULE PO PRN (08:00)
[2021-02-16] MEDS ORDERED: CloNIDine HCL 0.1 MG TABLET PO PRN (08:00)
[2021-02-16 12:42] LABS: GLUCOMETER DEV NAME(LOC) 3EX.; GLUCOSE,POINT OF CARE 126 MG/DL (70-110)
[2021-02-16] MEDS ORDERED: HALO50VI4 IM (16:22)
[2021-02-16] MEDS ORDERED: DIVA-111 PO (16:22)
[2021-02-16] MEDS ORDERED: RISP2TAB45 PO (16:22)
[2021-02-16] MEDS ORDERED: ESCI5TAB16 PO (16:22)
[2021-02-16] MEDS ORDERED: DIVA-112 PO (16:22)
[2021-02-16] MEDS ORDERED: RISP1TAB48 PO (16:22)
[2021-02-16] MEDS ORDERED: LevETIRAcetam 500 MG TABLET PO SCH (17:00)
[2021-02-16] MEDS ORDERED: LORazepam 2 MG/ML VIAL ONE (17:40)
[2021-02-16] MEDS ORDERED: HALOPERIDOL LACTATE 5 MG/ML VIAL IM ONE (17:45)
[2021-02-16] MEDS ORDERED: LORazepam 2 MG/ML VIAL IM ONE (17:45)
[2021-02-16] MEDS ORDERED: DiphenhydrAMINE HCL 50 MG/ML VIAL IM ONE (17:45)
[2021-02-16] MEDS: LORazepam 2 MG TABLET PO PRN (17:50)
[2021-02-16] MEDS: LevETIRAcetam 500 MG TABLET PO SCH (17:55)
[2021-02-16] MEDS: DIVALPROEX SODIUM 250 MG DR TABLET PO SCH (17:55)
[2021-02-16] MEDS: RisperiDONE 1 MG TABLET PO SCH (21:00)
[2021-02-16] MEDS: DIVALPROEX SODIUM 500 MG DR TABLET PO SCH (21:00)
[2021-02-17] MEDS: DIVALPROEX SODIUM 250 MG DR TABLET PO SCH ×2 (11:00→17:52)
[2021-02-17] MEDS: ESCITALOPRAM OXALATE 10 MG TABLET PO SCH (11:00)
[2021-02-17] MEDS: LevETIRAcetam 500 MG TABLET PO SCH ×2 (11:00→17:51)
[2021-02-17] MEDS: LORazepam 2 MG TABLET PO PRN (12:21)
[2021-02-17] MEDS: RisperiDONE 1 MG TABLET PO SCH (20:37)
[2021-02-17] MEDS: DIVALPROEX SODIUM 500 MG DR TABLET PO SCH (20:37)
[2021-02-18] MEDS: DIVALPROEX SODIUM 250 MG DR TABLET PO SCH ×2 (07:31→16:41)
[2021-02-18] MEDS: LevETIRAcetam 500 MG TABLET PO SCH ×2 (07:31→16:41)
[2021-02-18] MEDS: ESCITALOPRAM OXALATE 10 MG TABLET PO SCH (07:32)
[2021-02-18 09:06] VITALS: BP 115/60
[2021-02-18] MEDS: HALOPERIDOL 5 MG TABLET PO PRN ×2 (10:54→16:41)
[2021-02-18] MEDS: LORazepam 2 MG TABLET PO PRN ×2 (10:54→17:07)
[2021-02-18 16:29] VITALS: BP 129/76
[2021-02-18] MEDS: RisperiDONE 1 MG TABLET PO SCH (20:20)
[2021-02-18] MEDS: DIVALPROEX SODIUM 500 MG DR TABLET PO SCH (20:20)
[2021-02-19] MEDS: LevETIRAcetam 500 MG TABLET PO SCH ×2 (07:59→16:18)
[2021-02-19] MEDS: DIVALPROEX SODIUM 250 MG DR TABLET PO SCH ×2 (07:59→16:18)
[2021-02-19] MEDS: ESCITALOPRAM OXALATE 10 MG TABLET PO SCH (07:59)
[2021-02-19] MEDS: LORazepam 2 MG TABLET PO PRN ×2 (07:59→16:18)
[2021-02-19 09:19] VITALS: BP 173/129
[2021-02-19 09:35] VITALS: BP 106/69
[2021-02-19 09:40] LABS: GLUCOMETER DEV NAME(LOC) 3E.C; GLUCOSE,POINT OF CARE 148 MG/DL (70-110)
[2021-02-19] MEDS ORDERED: LevETIRAcetam 250 MG TABLET ONE (09:42)
[2021-02-19] MEDS ORDERED: LevETIRAcetam 500 MG TABLET PO SCH (09:45)
[2021-02-19] MEDS ORDERED: LevETIRAcetam 250 MG TABLET PO ONE (10:15)
[2021-02-19 11:04] LABS: CHOL/HDL RATIO 5.9 (4.2-7.3)
[2021-02-19 16:30] VITALS: BP 146/95
[2021-02-19] MEDS: DIVALPROEX SODIUM 500 MG DR TABLET PO SCH (20:30)
[2021-02-19] MEDS: RisperiDONE 1 MG TABLET PO SCH (20:30)
[2021-02-20 08:31] VITALS: BP 116/70
[2021-02-20] MEDS: LevETIRAcetam 500 MG TABLET PO SCH (08:51)
[2021-02-20] MEDS: ESCITALOPRAM OXALATE 10 MG TABLET PO SCH (08:51)
[2021-02-20] MEDS: DIVALPROEX SODIUM 250 MG DR TABLET PO SCH (08:52)
[2021-02-20] MEDS ORDERED: DIVA-111 PO (09:58)
[2021-02-20] MEDS ORDERED: ESCI5TAB16 PO (09:58)
[2021-02-20] MEDS ORDERED: LEVE500T53 PO (09:58)
[2021-02-20] MEDS ORDERED: DIVA-112 PO (09:58)
[2021-02-20] MEDS ORDERED: RISP2TAB45 PO (09:58)
== END 2021-02-20 12:35 | disposition home or self-care (01) | DRG 885 ==
LOC: EMS 22:59 → 3EI 02-16 03:23 → 3EC 02-16 17:51
DX: F25.1 Schizoaffective disorder, depressive type (principal); R45.851 Suicidal ideations; G40.909 Epilepsy, unspecified, not intractable, without status epilepticus; I10 Essential (primary) hypertension; J45.909 Unspecified asthma, uncomplicated; K21.9 Gastro-esophageal reflux disease without esophagitis; Z20.822 Contact with and (suspected) exposure to COVID-19; F17.200 Nicotine dependence, unspecified, uncomplicated; E03.9 Hypothyroidism, unspecified; F41.9 Anxiety disorder, unspecified; Z88.8 Allergy status to other drugs, medicaments and biological substances; Z79.899 Other long term (current) drug therapy
CPT/HCPCS: 70450; 72125; 80053; 80061; 80164; 82962; 85025; 99285; G0480; J1200; J1630; J2060

== ENCOUNTER 2021-02-25 20:16 | Emergency (ER) | payer MEDICARE, MEDICAID ==
[~2021-02-25] VITALS: Ht 170.2 cm; Wt 72.7 kg
[~2021-02-25 20:16] MED LIST changes: +DIVA-111 PO; +DIVA-112 PO; +ESCI5TAB16 PO; +RISP2TAB45 PO; -TRAZ-252 PO
[2021-02-25 20:24] VITALS: BP 120/87
== END 2021-02-25 20:40 | disposition left against medical advice (07) ==
LOC: EMS 20:19
DX: F41.9 Anxiety disorder, unspecified (principal); R07.89 Other chest pain; Z87.891 Personal history of nicotine dependence
CPT/HCPCS: 99283

== ENCOUNTER 2021-03-06 19:43 | Inpatient (IN) | payer MEDICARE, MEDICAID ==
[~2021-03-06] VITALS: Ht 165.1 cm; Wt 89.9 kg
[2021-03-06] MEDS ORDERED: TRAZ-252 PO (20:05)
[2021-03-06] MEDS ORDERED: PALI156D IM (20:05)
[2021-03-06] MEDS ORDERED: HALO50VI4 IM (20:08)
[2021-03-06 20:22] LABS: COVID AG,FIA SOURCE NASOPHARYNGEAL
[2021-03-06 20:25] LABS: BASOPHILS % (AUTO) 0.4 % (0.0-2.0); EOSINOPHILS % (AUTO) 1.1 % (1.0-6.0); HEMATOCRIT 42.5 % (41-53); HEMOGLOBIN 14.5 g/dL (13.5-17.5); LYMPHOCYTES # (AUTO) 2.3 K/uL (1.0-4.8); LYMPHOCYTES % (AUTO) 31.2 % (22.0-44.0); MEAN CORPUSCULAR HEMOGLOBIN 30.7 pg (26.0-34.0); MEAN CORPUSCULAR HGB CONC 34.2 G/dL (31.0-37.0); MEAN CORPUSCULAR VOLUME 90 fL (80-100); MONOCYTES # (AUTO) 0.9 K/uL (0.1-1.0); MONOCYTES % (AUTO) 11.9 % (2.0-9.0); NEUTROPHILS % (AUTO) 55.4 % (40.0-70.0); PLATELET COUNT (AUTO) 225 K/uL (150-450); RED BLOOD CELL COUNT(AUTO) 4.74 MIL/uL (4.50-5.90)
[2021-03-06 20:34] LABS: ANION GAP 7 mmol/L (8-16); CALCIUM, TOTAL 9.4 mg/dL (8.8-10.5); CARBON DIOXIDE 25 mmol/L (22-29); CHLORIDE 106 mmol/L (98-107); CREATININE 1.15 mg/dL (0.60-1.30); GLOMERULAR FILTR. RATE CALC > 60 mL/min (>60); GLUCOSE,RANDOM 90 mg/dL (70-110); POTASSIUM 4.2 mmol/L (3.5-5.1); SODIUM SERUM 138 mmol/L (136-145); UREA NITROGEN, BLOOD 15 mg/dL (7-18)
[2021-03-06 20:39] LABS: AMPHET/METH SCREEN,URINE NEGATIVE (NEGATIVE); BARBITURATE SCREEN, URINE NEGATIVE (NEGATIVE); BENZODIAZEPINES SCREEN,URINE NEGATIVE (NEGATIVE); CANNABINOID SCREEN,URINE NEGATIVE (NEGATIVE); COCAINE SCREEN,URINE NEGATIVE (NEGATIVE); METHADONE SCREEN, URINE NEGATIVE (NEGATIVE); OPIATE SCREEN,URINE NEGATIVE (NEGATIVE); PHENCYCLIDINE SCREEN,URINE NEGATIVE (NEGATIVE)
[2021-03-06 20:40] LABS: ALANINE AMINOTRANSFERASE 56 U/L (12-78); ALKALINE PHOSPHATASE 102 U/L (46-116); ASPARTATE AMINOTRANSFERASE 28 U/L (15-37); BILIRUBIN,TOTAL 0.4 mg/dL (0.1-1.0); TOTAL PROTEIN, SERUM 8.2 g/dL (6.4-8.2)
[2021-03-07] MEDS: ZOLPIDEM TARTRATE 10 MG TABLET PO PRN (00:40)
[2021-03-07] MEDS: LORazepam 2 MG TABLET PO PRN ×2 (03:18→17:13)
[2021-03-07 04:33] LABS: CHOL/HDL RATIO 6.1 (4.2-7.3); CHOLESTEROL 226 mg/dL (131-200); HDL CHOLESTEROL 37 mg/dL (40-60); LDL CHOL (CALC.) 157 mg/dL (0-130); TRIGLYCERIDES 161 mg/dL (15-150)
[2021-03-07] MEDS ORDERED: MAG HYDROX/AL HYDROX/SIMETH ES 30 ML SUSPENSION UDCUP PO PRN (12:30)
[2021-03-07] MEDS ORDERED: ALBUTEROL SULFATE HFA 90 MCG/PUFF 8 GM INHALER IH PRN (12:30)
[2021-03-07] MEDS ORDERED: GuaiFENesin/D-METHORPHAN [SUGAR-FREE] 200-20MG/10 ML SYRUP UDCUP PO PRN (12:30)
[2021-03-07] MEDS ORDERED: PETROLATUM,WHITE 28 GM JELLY TP PRN (12:30)
[2021-03-07] MEDS ORDERED: ONDANSETRON HCL 4 MG TABLET PO PRN (12:30)
[2021-03-07] MEDS ORDERED: DOCUSATE SODIUM 100 MG CAPSULE PO PRN (12:30)
[2021-03-07] MEDS ORDERED: CloNIDine HCL 0.1 MG TABLET PO PRN (12:30)
[2021-03-07] MEDS ORDERED: LOPERAMIDE HCL 2 MG CAPSULE PO PRN (12:30)
[2021-03-07] MEDS ORDERED: ACETAMINOPHEN 325 MG TABLET PO PRN (12:30)
[2021-03-07] MEDS ORDERED: NICOTINE 14 MG/24 HOUR PATCH TD PRN (12:30)
[2021-03-07] MEDS ORDERED: IBUPROFEN 400 MG TABLET PO PRN (12:30)
[2021-03-07] MEDS ORDERED: MAGNESIUM HYDROXIDE SUSPENSION 30 ML UDCUP PO PRN (12:30)
[2021-03-07] MEDS: LevETIRAcetam 500 MG TABLET PO SCH (17:00)
[2021-03-07 18:12] VITALS: BP 137/83
[2021-03-08 08:06] VITALS: BP 113/68
[2021-03-08] MEDS: LevETIRAcetam 500 MG TABLET PO SCH ×2 (10:28→16:30)
[2021-03-08] MEDS: LORazepam 2 MG TABLET PO PRN ×2 (10:29→19:44)
[2021-03-08] MEDS: HALOPERIDOL 10 MG TABLET PO PRN ×2 (10:29→16:31)
[2021-03-08] MEDS ORDERED: RISP2TAB45 PO (12:21)
[2021-03-08] MEDS ORDERED: DIVA-112 PO (12:21)
[2021-03-08] MEDS ORDERED: DIVA-111 PO (12:21)
[2021-03-08] MEDS ORDERED: RISP1TAB48 PO (12:21)
[2021-03-08] MEDS ORDERED: ESCI5TAB16 PO (12:21)
[2021-03-08] MEDS: ESCITALOPRAM OXALATE 10 MG TABLET PO SCH (13:00)
[2021-03-08 16:00] VITALS: BP 121/74
[2021-03-08] MEDS: DIVALPROEX SODIUM 250 MG DR TABLET PO SCH (16:30)
[2021-03-08 17:46] LABS: GLUCOMETER DEV NAME(LOC) 3E.C; GLUCOSE,POINT OF CARE 129 MG/DL (70-110)
[2021-03-08] MEDS: DIVALPROEX SODIUM 500 MG DR TABLET PO SCH (20:36)
[2021-03-08] MEDS: ZOLPIDEM TARTRATE 10 MG TABLET PO PRN (20:36)
[2021-03-08] MEDS: RisperiDONE 3 MG TABLET PO SCH (20:36)
[2021-03-09 08:54] VITALS: BP 139/90
[2021-03-09] MEDS: DIVALPROEX SODIUM 250 MG DR TABLET PO SCH ×2 (09:26→16:14)
[2021-03-09] MEDS: LevETIRAcetam 500 MG TABLET PO SCH ×2 (09:26→16:15)
[2021-03-09] MEDS: LORazepam 2 MG TABLET PO PRN ×2 (09:26→16:14)
[2021-03-09] MEDS: HALOPERIDOL 10 MG TABLET PO PRN ×2 (09:26→16:14)
[2021-03-09] MEDS: ESCITALOPRAM OXALATE 10 MG TABLET PO SCH (09:26)
[2021-03-09 16:40] VITALS: BP 122/89
[2021-03-09] MEDS ORDERED: HALOPERIDOL 5 MG TABLET PO PRN (16:45)
[2021-03-09] MEDS: DIVALPROEX SODIUM 500 MG DR TABLET PO SCH (22:07)
[2021-03-09] MEDS: RisperiDONE 3 MG TABLET PO SCH (22:07)
[2021-03-10] MEDS: ESCITALOPRAM OXALATE 10 MG TABLET PO SCH (08:22)
[2021-03-10] MEDS: LORazepam 2 MG TABLET PO PRN (08:22)
[2021-03-10] MEDS: DIVALPROEX SODIUM 250 MG DR TABLET PO SCH (08:22)
[2021-03-10] MEDS: LevETIRAcetam 500 MG TABLET PO SCH (08:22)
[2021-03-10] MEDS ORDERED: LEVE500T8 PO (08:24)
== END 2021-03-10 13:01 | disposition home or self-care (01) | DRG 885 ==
LOC: EMS 19:45 → UNDOADMIN 03-07 08:17 → 3EI 03-07 08:17 → 3EC 03-07 16:13
DX: F25.1 Schizoaffective disorder, depressive type (principal); R45.851 Suicidal ideations; E03.9 Hypothyroidism, unspecified; E78.5 Hyperlipidemia, unspecified; F17.200 Nicotine dependence, unspecified, uncomplicated; G40.909 Epilepsy, unspecified, not intractable, without status epilepticus; I10 Essential (primary) hypertension; J45.909 Unspecified asthma, uncomplicated; K21.9 Gastro-esophageal reflux disease without esophagitis; Z79.899 Other long term (current) drug therapy; Z91.011 Allergy to milk products; Z91.018 Allergy to other foods; Z20.822 Contact with and (suspected) exposure to COVID-19
CPT/HCPCS: 80053; 80061; 82962; 85025; 87081; 99285; G0480

== ENCOUNTER 2021-08-23 17:29 | Emergency (ER) | payer MEDICAID, MEDICARE ==
[~2021-08-23] VITALS: Ht 160 cm; Wt 59.1 kg
[~2021-08-23 17:29] MED LIST changes: +LEVE500T20 PO; -LEVE500T53 PO; +RISP1TAB48 PO; -RISP2TAB45 PO
[2021-08-23] MEDS ORDERED: DiphenhydrAMINE HCL 25 MG/10 ML SOLUTION UDCUP PO ONE (18:00)
[2021-08-23] MEDS ORDERED: LORazepam 1 MG TABLET PO ONE (18:00)
[2021-08-23] MEDS ORDERED: RisperiDONE 1 MG TABLET PO ONE (18:00)
[2021-08-23 19:15] LABS: BASOPHILS % (AUTO) 0.3 % (0.0-2.0); EOSINOPHILS % (AUTO) 0.3 % (1.0-6.0); HEMATOCRIT 34.8 % (41-53); HEMOGLOBIN 12.2 g/dL (13.5-17.5); LYMPHOCYTES # (AUTO) 1.2 K/uL (1.0-4.8); LYMPHOCYTES % (AUTO) 14.6 % (22.0-44.0); MEAN CORPUSCULAR HEMOGLOBIN 30.3 pg (26.0-34.0); MEAN CORPUSCULAR VOLUME 87 fL (80-100); MONOCYTES # (AUTO) 0.8 K/uL (0.1-1.0); MONOCYTES % (AUTO) 9.8 % (2.0-9.0); PLATELET COUNT (AUTO) 193 K/uL (150-450); RED BLOOD CELL COUNT(AUTO) 4.02 MIL/uL (4.50-5.90); RED CELL DISTRIBUTION WIDTH 13.1 % (11.5-14.5)
[2021-08-23 19:25] LABS: ANION GAP 8 mmol/L (8-16); CALCIUM, TOTAL 8.9 mg/dL (8.8-10.5); CARBON DIOXIDE 27 mmol/L (22-29); CHLORIDE 103 mmol/L (98-107); CREATININE 1.08 mg/dL (0.60-1.30); GLOMERULAR FILTR. RATE CALC > 60 mL/min (>60); GLUCOSE,RANDOM 86 mg/dL (70-110); POTASSIUM 3.6 mmol/L (3.5-5.1); SODIUM SERUM 138 mmol/L (136-145); UREA NITROGEN, BLOOD 15 mg/dL (7-18)
[2021-08-23 19:32] LABS: ALANINE AMINOTRANSFERASE 40 U/L (12-78); ALBUMIN 3.6 g/dL (3.4-5.0); ALKALINE PHOSPHATASE 109 U/L (46-116); ASPARTATE AMINOTRANSFERASE 26 U/L (15-37); BILIRUBIN,TOTAL 0.5 mg/dL (0.1-1.0); TOTAL PROTEIN, SERUM 7.2 g/dL (6.4-8.2)
[2021-08-24 05:00] VITALS: BP 108/65
== END 2021-08-24 05:00 | disposition home or self-care (01) ==
LOC: EMS 17:32
DX: F41.9 Anxiety disorder, unspecified (principal); F25.1 Schizoaffective disorder, depressive type; R56.9 Unspecified convulsions; I10 Essential (primary) hypertension; E03.9 Hypothyroidism, unspecified; K21.9 Gastro-esophageal reflux disease without esophagitis; Z87.891 Personal history of nicotine dependence; Z91.011 Allergy to milk products; Z91.018 Allergy to other foods; Z79.899 Other long term (current) drug therapy
CPT/HCPCS: 80053; 85025; 99284

== ENCOUNTER 2021-09-01 10:16 | Inpatient (IN) | payer MEDICARE ==
[~2021-09-01] VITALS: Ht 160 cm; Wt 84.1 kg
[2021-09-01] MEDS ORDERED: LORazepam 1 MG TABLET PO ONE (11:00)
[2021-09-01] MEDS ORDERED: HALOPERIDOL 5 MG TABLET PO ONE (11:00)
[2021-09-01] MEDS ORDERED: DiphenhydrAMINE HCL 25 MG/10 ML SOLUTION UDCUP PO ONE (11:00)
[2021-09-01 11:10] LABS: BASOPHILS % (AUTO) 0.3 % (0.0-2.0); EOSINOPHILS % (AUTO) 0.7 % (1.0-6.0); HEMOGLOBIN 13.5 g/dL (13.5-17.5); LYMPHOCYTES % (AUTO) 16.1 % (22.0-44.0); MEAN CORPUSCULAR HEMOGLOBIN 29.8 pg (26.0-34.0); MEAN CORPUSCULAR HGB CONC 33.7 G/dL (31.0-37.0); MEAN CORPUSCULAR VOLUME 88 fL (80-100); MONOCYTES # (AUTO) 0.5 K/uL (0.1-1.0); MONOCYTES % (AUTO) 8.8 % (2.0-9.0); NEUTROPHILS # (AUTO) 4.4 K/uL (1.8-7.7); NEUTROPHILS % (AUTO) 74.1 % (40.0-70.0); PLATELET COUNT (AUTO) 220 K/uL (150-450); RED BLOOD CELL COUNT(AUTO) 4.53 MIL/uL (4.50-5.90); RED CELL DISTRIBUTION WIDTH 13.5 % (11.5-14.5)
[2021-09-01 11:53] LABS: ANION GAP 9 mmol/L (8-16); CALCIUM, TOTAL 9.7 mg/dL (8.8-10.5); CARBON DIOXIDE 27 mmol/L (22-29); CHLORIDE 105 mmol/L (98-107); CREATININE 0.74 mg/dL (0.60-1.30); GLOMERULAR FILTR. RATE CALC > 60 mL/min (>60); GLUCOSE,RANDOM 96 mg/dL (70-110); POTASSIUM 4.2 mmol/L (3.5-5.1); SODIUM SERUM 141 mmol/L (136-145); UREA NITROGEN, BLOOD 14 mg/dL (7-18)
[2021-09-01 11:58] LABS: ALANINE AMINOTRANSFERASE 26 U/L (12-78); ALKALINE PHOSPHATASE 88 U/L (46-116); ASPARTATE AMINOTRANSFERASE 16 U/L (15-37); BILIRUBIN,TOTAL 0.4 mg/dL (0.1-1.0); TOTAL PROTEIN, SERUM 8.1 g/dL (6.4-8.2)
[2021-09-01 12:06] LABS: AMPHET/METH SCREEN,URINE NEGATIVE (NEGATIVE); BARBITURATE SCREEN, URINE NEGATIVE (NEGATIVE); BENZODIAZEPINES SCREEN,URINE NEGATIVE (NEGATIVE); CANNABINOID SCREEN,URINE NEGATIVE (NEGATIVE); COCAINE SCREEN,URINE NEGATIVE (NEGATIVE); METHADONE SCREEN, URINE NEGATIVE (NEGATIVE); OPIATE SCREEN,URINE NEGATIVE (NEGATIVE); PHENCYCLIDINE SCREEN,URINE NEGATIVE (NEGATIVE)
[2021-09-01 12:09] LABS: APPEARANCE,URINE CLEAR (CLEAR); BILIRUBIN,URINE NEGATIVE (NEGATIVE); GLUCOSE, URINE (UA) NEGATIVE (NEGATIVE); KETONES,URINE NEGATIVE (NEGATIVE); LEUKOCYTE ESTERASE ,URINE NEGATIVE (NEGATIVE); NITRATE,URINE NEGATIVE (NEGATIVE); OCCULT BLOOD,URINE NEGATIVE (NEGATIVE); PROTEIN,URINE 30-70 mg/dL (NEGATIVE); SPECIFIC GRAVITIY, URINE 1.034 (1.003-1.030); UROBILINOGEN,URINE <=1.0 mg/dL (<=1.0)
[2021-09-01 12:14] LABS: BACTERIA,URINE None Seen /HPF (None Seen); RBC,URINE None Seen /HPF (0-2); WBC,URINE None Seen /HPF (0-5)
[2021-09-01 12:18] LABS: COVID AG,FIA SOURCE NASOPHARYNGEAL
[2021-09-01] MEDS: LORazepam 2 MG TABLET PO PRN ×2 (17:49→20:57)
[2021-09-01] MEDS: HALOPERIDOL 5 MG TABLET PO PRN ×2 (19:34→20:57)
[2021-09-01 20:30] VITALS: BP 146/83
[2021-09-01] MEDS: ZOLPIDEM TARTRATE 10 MG TABLET PO PRN (20:56)
[2021-09-02] MEDS ORDERED: GuaiFENesin/D-METHORPHAN [SUGAR-FREE] 200-20MG/10 ML SYRUP UDCUP PO PRN (07:00)
[2021-09-02] MEDS ORDERED: PETROLATUM,WHITE 28 GM JELLY TP PRN (07:00)
[2021-09-02] MEDS ORDERED: MAG HYDROX/AL HYDROX/SIMETH ES 30 ML SUSPENSION UDCUP PO PRN (07:00)
[2021-09-02] MEDS ORDERED: NICOTINE 14 MG/24 HOUR PATCH TD PRN (07:00)
[2021-09-02] MEDS ORDERED: IBUPROFEN 400 MG TABLET PO PRN (07:00)
[2021-09-02] MEDS ORDERED: DOCUSATE SODIUM 100 MG CAPSULE PO PRN (07:00)
[2021-09-02] MEDS ORDERED: ALBUTEROL SULFATE HFA 90 MCG/PUFF 8 GM INHALER IH PRN (07:00)
[2021-09-02] MEDS ORDERED: ACETAMINOPHEN 325 MG TABLET PO PRN (07:00)
[2021-09-02] MEDS ORDERED: CloNIDine HCL 0.1 MG TABLET PO PRN (07:00)
[2021-09-02] MEDS ORDERED: MAGNESIUM HYDROXIDE SUSPENSION 30 ML UDCUP PO PRN (07:00)
[2021-09-02] MEDS ORDERED: ONDANSETRON HCL 4 MG TABLET PO PRN (07:00)
[2021-09-02] MEDS ORDERED: HALOPERIDOL LACTATE 5 MG/ML VIAL ONE (07:35)
[2021-09-02] MEDS ORDERED: LORazepam 2 MG/ML VIAL ONE (07:35)
[2021-09-02] MEDS ORDERED: DiphenhydrAMINE HCL 50 MG/ML VIAL ONE (07:35)
[2021-09-02] MEDS ORDERED: HALOPERIDOL LACTATE 5 MG/ML VIAL IM ONE (07:45)
[2021-09-02] MEDS ORDERED: LORazepam 2 MG/ML VIAL IM ONE (07:45)
[2021-09-02] MEDS ORDERED: DiphenhydrAMINE HCL 50 MG/ML VIAL IM ONE (07:45)
[2021-09-02 08:02] VITALS: BP 137/67
[2021-09-02] MEDS: LORazepam 2 MG TABLET PO PRN ×2 (08:32→16:24)
[2021-09-02] MEDS: LevETIRAcetam 500 MG TABLET PO SCH ×2 (08:32→16:24)
[2021-09-02] MEDS: HALOPERIDOL 5 MG TABLET PO PRN ×2 (08:44→16:24)
[2021-09-02] MEDS: ESCITALOPRAM OXALATE 10 MG TABLET PO SCH (13:04)
[2021-09-02] MEDS: DIVALPROEX SODIUM 500 MG DR TABLET PO SCH ×2 (13:04→16:24)
[2021-09-02] MEDS: RisperiDONE 2 MG TABLET PO SCH (16:24)
[2021-09-03] MEDS: LORazepam 2 MG TABLET PO PRN ×3 (02:26→17:48)
[2021-09-03] MEDS: ZOLPIDEM TARTRATE 10 MG TABLET PO PRN (02:28)
[2021-09-03] MEDS: DIVALPROEX SODIUM 500 MG DR TABLET PO SCH ×3 (08:24→17:48)
[2021-09-03] MEDS: LevETIRAcetam 500 MG TABLET PO SCH ×2 (08:24→17:47)
[2021-09-03] MEDS: HALOPERIDOL 5 MG TABLET PO PRN ×2 (08:24→17:48)
[2021-09-03] MEDS: ESCITALOPRAM OXALATE 10 MG TABLET PO SCH (08:24)
[2021-09-03] MEDS: RisperiDONE 2 MG TABLET PO SCH ×2 (08:24→17:47)
[2021-09-03 16:50] VITALS: BP 119/84
[2021-09-04 05:45] VITALS: BP 132/74
[2021-09-04] MEDS: DIVALPROEX SODIUM 500 MG DR TABLET PO SCH ×3 (08:43→18:15)
[2021-09-04] MEDS: LevETIRAcetam 500 MG TABLET PO SCH ×2 (08:43→18:15)
[2021-09-04] MEDS: RisperiDONE 2 MG TABLET PO SCH ×2 (08:43→18:15)
[2021-09-04] MEDS: LORazepam 2 MG TABLET PO PRN ×2 (08:44→18:15)
[2021-09-04] MEDS: ESCITALOPRAM OXALATE 10 MG TABLET PO SCH (08:44)
[2021-09-04] MEDS: HALOPERIDOL 5 MG TABLET PO PRN ×2 (09:01→18:15)
[2021-09-04] MEDS ORDERED: DiphenhydrAMINE HCL 50 MG/ML VIAL ONE ×3 (10:35→10:41)
[2021-09-04] MEDS ORDERED: LORazepam 2 MG/ML VIAL ONE (10:35)
[2021-09-04] MEDS ORDERED: HALOPERIDOL LACTATE 5 MG/ML VIAL ONE ×2 (10:35→10:39)
[2021-09-04] MEDS ORDERED: DiphenhydrAMINE HCL 50 MG/ML VIAL IM ONE (11:15)
[2021-09-04] MEDS ORDERED: HALOPERIDOL LACTATE 5 MG/ML VIAL IM ONE (11:15)
[2021-09-04] MEDS ORDERED: LORazepam 2 MG/ML VIAL IM ONE (11:15)
[2021-09-04 11:16] VITALS: BP 134/76
[2021-09-04 16:19] VITALS: BP 130/72
[2021-09-04] MEDS: ZOLPIDEM TARTRATE 10 MG TABLET PO PRN (21:32)
[2021-09-05 06:13] VITALS: BP 144/89
[2021-09-05 07:59] LABS: CHOL/HDL RATIO 4.6 (4.2-7.3); FREE T4 (FREE THYROXINE) 0.79 ng/dL (0.76-1.46); THYROID STIMULATING HORMONE 2.36 uIU/mL (0.36-3.74)
[2021-09-05 08:00] VITALS: BP 136/84
[2021-09-05] MEDS: LevETIRAcetam 500 MG TABLET PO SCH ×2 (08:07→16:06)
[2021-09-05] MEDS: DIVALPROEX SODIUM 500 MG DR TABLET PO SCH ×3 (08:07→16:06)
[2021-09-05] MEDS: HALOPERIDOL 5 MG TABLET PO PRN ×2 (08:08→16:06)
[2021-09-05] MEDS: RisperiDONE 2 MG TABLET PO SCH ×2 (08:08→16:06)
[2021-09-05] MEDS: LORazepam 2 MG TABLET PO PRN ×2 (08:08→16:06)
[2021-09-05] MEDS: ESCITALOPRAM OXALATE 10 MG TABLET PO SCH (08:18)
[2021-09-05 16:49] VITALS: BP 150/97
[2021-09-06 06:33] VITALS: BP 137/91
[2021-09-06] MEDS: DIVALPROEX SODIUM 500 MG DR TABLET PO SCH ×3 (08:00→16:18)
[2021-09-06] MEDS: HALOPERIDOL 5 MG TABLET PO PRN ×2 (08:01→16:21)
[2021-09-06] MEDS: ESCITALOPRAM OXALATE 10 MG TABLET PO SCH (08:01)
[2021-09-06] MEDS: RisperiDONE 2 MG TABLET PO SCH ×2 (08:01→16:20)
[2021-09-06] MEDS: LevETIRAcetam 500 MG TABLET PO SCH ×2 (08:01→16:18)
[2021-09-06] MEDS: LORazepam 2 MG TABLET PO PRN ×2 (08:01→16:21)
[2021-09-06 08:47] VITALS: BP 138/82
[2021-09-06] MEDS ORDERED: DiphenhydrAMINE HCL 50 MG/ML VIAL IM ONE (10:45)
[2021-09-06] MEDS ORDERED: HALOPERIDOL LACTATE 5 MG/ML VIAL IM ONE (10:45)
[2021-09-06] MEDS ORDERED: LORazepam 2 MG/ML VIAL IM ONE (10:45)
[2021-09-06] MEDS ORDERED: DiphenhydrAMINE HCL 50 MG/ML VIAL ONE (10:50)
[2021-09-06] MEDS ORDERED: LORazepam 2 MG/ML VIAL ONE (10:51)
[2021-09-06] MEDS ORDERED: HALOPERIDOL LACTATE 5 MG/ML VIAL ONE (10:51)
[2021-09-06 17:21] VITALS: BP 127/81
[2021-09-07 05:31] VITALS: BP 123/71
[2021-09-07] MEDS: LORazepam 2 MG TABLET PO PRN ×2 (07:57→16:06)
[2021-09-07] MEDS: HALOPERIDOL 5 MG TABLET PO PRN ×2 (07:57→16:06)
[2021-09-07] MEDS: LevETIRAcetam 500 MG TABLET PO SCH ×2 (08:01→16:06)
[2021-09-07] MEDS: RisperiDONE 2 MG TABLET PO SCH ×2 (08:01→16:06)
[2021-09-07] MEDS: ESCITALOPRAM OXALATE 10 MG TABLET PO SCH (08:01)
[2021-09-07] MEDS: DIVALPROEX SODIUM 500 MG DR TABLET PO SCH ×3 (08:01→16:06)
[2021-09-07] MEDS ORDERED: LORazepam 2 MG/ML VIAL ONE ×2 (09:41→09:47)
[2021-09-07] MEDS ORDERED: DiphenhydrAMINE HCL 50 MG/ML VIAL ONE (09:42)
[2021-09-07] MEDS ORDERED: HALOPERIDOL LACTATE 5 MG/ML VIAL ONE ×2 (09:42→09:47)
[2021-09-07] MEDS ORDERED: LORazepam 2 MG/ML VIAL IM ONE (10:00)
[2021-09-07] MEDS ORDERED: HALOPERIDOL LACTATE 5 MG/ML VIAL IM ONE (10:00)
[2021-09-07] MEDS ORDERED: DiphenhydrAMINE HCL 50 MG/ML VIAL IM ONE (10:00)
[2021-09-07 10:07] VITALS: BP 132/79
[2021-09-07 16:12] VITALS: BP 110/66
[2021-09-08 00:45] VITALS: BP 110/64
[2021-09-08] MEDS: LevETIRAcetam 500 MG TABLET PO SCH ×2 (08:43→17:18)
[2021-09-08] MEDS: RisperiDONE 2 MG TABLET PO SCH ×2 (08:43→17:18)
[2021-09-08] MEDS: DIVALPROEX SODIUM 500 MG DR TABLET PO SCH ×3 (08:44→17:18)
[2021-09-08] MEDS: ESCITALOPRAM OXALATE 10 MG TABLET PO SCH (08:44)
[2021-09-08] MEDS: LORazepam 2 MG TABLET PO PRN ×3 (08:44→17:18)
[2021-09-08] MEDS: HALOPERIDOL 5 MG TABLET PO PRN ×3 (08:44→17:18)
[2021-09-08 16:27] VITALS: BP 109/74
[2021-09-09 00:34] VITALS: BP 112/70
[2021-09-09] MEDS: ESCITALOPRAM OXALATE 10 MG TABLET PO SCH (08:30)
[2021-09-09] MEDS: RisperiDONE 2 MG TABLET PO SCH (08:30)
[2021-09-09] MEDS: LORazepam 2 MG TABLET PO PRN (08:30)
[2021-09-09] MEDS: LevETIRAcetam 500 MG TABLET PO SCH (08:30)
[2021-09-09] MEDS: DIVALPROEX SODIUM 500 MG DR TABLET PO SCH ×2 (08:30→12:50)
[2021-09-09] MEDS: HALOPERIDOL 5 MG TABLET PO PRN (08:30)
[2021-09-09 09:26] VITALS: BP 125/79
[2021-09-09] MEDS ORDERED: LEVE500T8 PO (10:53)
[2021-09-09] MEDS ORDERED: DIVA-112 PO (10:53)
[2021-09-09] MEDS ORDERED: RISP2TAB86 PO (10:53)
[2021-09-09] MEDS ORDERED: ESCI10 PO (10:53)
== END 2021-09-09 13:35 | disposition left against medical advice (07) | DRG 885 ==
LOC: EMS 10:16 → B3A 16:41
PROVIDERS: ADMIT Psychiatry & Neurology Child & Adolescent Psychiatry; ATTEND Psychiatry & Neurology Child & Adolescent Psychiatry
DX: F20.0 Paranoid schizophrenia (principal); R45.851 Suicidal ideations; Z20.822 Contact with and (suspected) exposure to COVID-19; K21.9 Gastro-esophageal reflux disease without esophagitis; J44.9 Chronic obstructive pulmonary disease, unspecified; I10 Essential (primary) hypertension; G40.909 Epilepsy, unspecified, not intractable, without status epilepticus; E03.9 Hypothyroidism, unspecified; Z53.29 Procedure and treatment not carried out because of patient's decision for other reasons; F31.9 Bipolar disorder, unspecified; F41.9 Anxiety disorder, unspecified; Z87.891 Personal history of nicotine dependence; Z91.011 Allergy to milk products; Z91.018 Allergy to other foods
CPT/HCPCS: 80053; 80061; 81001; 84439; 84443; 85025; 99285; G0480; J1200; J1630; J2060; J3535

== ENCOUNTER 2021-09-09 15:15 | Emergency (ER) | payer MEDICARE ==
[~2021-09-09] VITALS: Ht 160 cm; Wt 59.1 kg
[~2021-09-09 15:15] MED LIST changes: +ESCI10 PO; +LEVE500T8 PO; +RISP2TAB86 PO
[2021-09-09 15:22] VITALS: BP 119/50
== END 2021-09-09 16:00 | disposition home or self-care (01) ==
LOC: EMS 15:15
DX: M79.605 Pain in left leg (principal); F31.9 Bipolar disorder, unspecified; F41.9 Anxiety disorder, unspecified; K21.9 Gastro-esophageal reflux disease without esophagitis; E03.9 Hypothyroidism, unspecified; F20.9 Schizophrenia, unspecified; Z87.891 Personal history of nicotine dependence; Z91.011 Allergy to milk products; Z79.899 Other long term (current) drug therapy
CPT/HCPCS: 99283; Z7502

== ENCOUNTER 2021-09-22 02:26 | Emergency (ER) | payer MEDICARE ==
[~2021-09-22] VITALS: Ht 160 cm; Wt 59.1 kg
[~2021-09-22 02:26] MED LIST changes: -LEVE500T20 PO
[2021-09-22 05:01] LABS: COVID AG,FIA SOURCE NASAL SWAB
[2021-09-22 05:01] LABS: ANION GAP 6 mmol/L (8-16); CALCIUM, TOTAL 8.8 mg/dL (8.8-10.5); CARBON DIOXIDE 29 mmol/L (22-29); CHLORIDE 104 mmol/L (98-107); CREATININE 0.83 mg/dL (0.60-1.30); GLOMERULAR FILTR. RATE CALC > 60 mL/min (>60); GLUCOSE,RANDOM 86 mg/dL (70-110); POTASSIUM 4.1 mmol/L (3.5-5.1); SODIUM SERUM 139 mmol/L (136-145); UREA NITROGEN, BLOOD 20 mg/dL (7-18)
[2021-09-22 05:03] LABS: BASOPHILS % (AUTO) 0.7 % (0.0-2.0); HEMATOCRIT 36.4 % (41-53); HEMOGLOBIN 12.5 g/dL (13.5-17.5); LYMPHOCYTES # (AUTO) 1.6 K/uL (1.0-4.8); LYMPHOCYTES % (AUTO) 29.3 % (22.0-44.0); MEAN CORPUSCULAR HEMOGLOBIN 30.2 pg (26.0-34.0); MEAN CORPUSCULAR HGB CONC 34.4 G/dL (31.0-37.0); MEAN CORPUSCULAR VOLUME 88 fL (80-100); MONOCYTES # (AUTO) 0.6 K/uL (0.1-1.0); MONOCYTES % (AUTO) 10.7 % (2.0-9.0); NEUTROPHILS # (AUTO) 3.2 K/uL (1.8-7.7); NEUTROPHILS % (AUTO) 58.3 % (40.0-70.0); PLATELET COUNT (AUTO) 239 K/uL (150-450); RED BLOOD CELL COUNT(AUTO) 4.15 MIL/uL (4.50-5.90); RED CELL DISTRIBUTION WIDTH 13.4 % (11.5-14.5)
[2021-09-22 05:03] LABS: AMPHET/METH SCREEN,URINE NEGATIVE (NEGATIVE); BARBITURATE SCREEN, URINE NEGATIVE (NEGATIVE); BENZODIAZEPINES SCREEN,URINE NEGATIVE (NEGATIVE); CANNABINOID SCREEN,URINE NEGATIVE (NEGATIVE); COCAINE SCREEN,URINE NEGATIVE (NEGATIVE); METHADONE SCREEN, URINE NEGATIVE (NEGATIVE); OPIATE SCREEN,URINE NEGATIVE (NEGATIVE)
[2021-09-22 05:04] LABS: PHENCYCLIDINE SCREEN,URINE NEGATIVE (NEGATIVE)
[2021-09-22 05:07] LABS: ALANINE AMINOTRANSFERASE 29 U/L (12-78); ALBUMIN 3.5 g/dL (3.4-5.0); ALKALINE PHOSPHATASE 92 U/L (46-116); ASPARTATE AMINOTRANSFERASE 23 U/L (15-37); BILIRUBIN,TOTAL 0.2 mg/dL (0.1-1.0); TOTAL PROTEIN, SERUM 7.6 g/dL (6.4-8.2)
[2021-09-22 05:46] VITALS: BP 128/77
== END 2021-09-22 06:20 | disposition home or self-care (01) ==
LOC: EMS 02:27
DX: F41.9 Anxiety disorder, unspecified (principal); I10 Essential (primary) hypertension; E03.9 Hypothyroidism, unspecified; K21.9 Gastro-esophageal reflux disease without esophagitis; F20.9 Schizophrenia, unspecified; Z91.011 Allergy to milk products; Z91.018 Allergy to other foods; Z79.899 Other long term (current) drug therapy; Z87.891 Personal history of nicotine dependence; Z20.822 Contact with and (suspected) exposure to COVID-19
CPT/HCPCS: 80053; 85025; 99283

== ENCOUNTER 2021-09-23 20:05 | Inpatient (IN) | payer MEDICARE, SELFPAY ==
[~2021-09-23] VITALS: Ht 160 cm; Wt 84.0 kg
[2021-09-23 20:58] LABS: COVID AG,FIA SOURCE NASAL SWAB
[2021-09-23 21:00] LABS: BASOPHILS % (AUTO) 0.5 % (0.0-2.0); EOSINOPHILS % (AUTO) 2.2 % (1.0-6.0); HEMATOCRIT 37.7 % (41-53); LYMPHOCYTES # (AUTO) 2.5 K/uL (1.0-4.8); LYMPHOCYTES % (AUTO) 35.5 % (22.0-44.0); MEAN CORPUSCULAR HEMOGLOBIN 30.1 pg (26.0-34.0); MEAN CORPUSCULAR HGB CONC 34.4 G/dL (31.0-37.0); MEAN CORPUSCULAR VOLUME 87 fL (80-100); MONOCYTES # (AUTO) 0.6 K/uL (0.1-1.0); MONOCYTES % (AUTO) 8.6 % (2.0-9.0); NEUTROPHILS # (AUTO) 3.7 K/uL (1.8-7.7); NEUTROPHILS % (AUTO) 53.2 % (40.0-70.0); PLATELET COUNT (AUTO) 258 K/uL (150-450); RED BLOOD CELL COUNT(AUTO) 4.31 MIL/uL (4.50-5.90); RED CELL DISTRIBUTION WIDTH 13.2 % (11.5-14.5)
[2021-09-23 21:38] LABS: AMPHET/METH SCREEN,URINE NEGATIVE (NEGATIVE); BARBITURATE SCREEN, URINE NEGATIVE (NEGATIVE); BENZODIAZEPINES SCREEN,URINE NEGATIVE (NEGATIVE); CANNABINOID SCREEN,URINE NEGATIVE (NEGATIVE); COCAINE SCREEN,URINE NEGATIVE (NEGATIVE); METHADONE SCREEN, URINE NEGATIVE (NEGATIVE); OPIATE SCREEN,URINE NEGATIVE (NEGATIVE)
[2021-09-23 21:40] LABS: ANION GAP 9 mmol/L (8-16); CALCIUM, TOTAL 8.8 mg/dL (8.8-10.5); CARBON DIOXIDE 25 mmol/L (22-29); CHLORIDE 102 mmol/L (98-107); CREATININE 0.72 mg/dL (0.60-1.30); GLOMERULAR FILTR. RATE CALC > 60 mL/min (>60); GLUCOSE,RANDOM 94 mg/dL (70-110); POTASSIUM 3.8 mmol/L (3.5-5.1); SODIUM SERUM 136 mmol/L (136-145); UREA NITROGEN, BLOOD 15 mg/dL (7-18)
[2021-09-23 21:51] LABS: PHENCYCLIDINE SCREEN,URINE NEGATIVE (NEGATIVE)
[2021-09-23 21:53] LABS: ALANINE AMINOTRANSFERASE 30 U/L (12-78); ALBUMIN 3.8 g/dL (3.4-5.0); ALKALINE PHOSPHATASE 101 U/L (46-116); ASPARTATE AMINOTRANSFERASE 18 U/L (15-37); BILIRUBIN,TOTAL 0.2 mg/dL (0.1-1.0); TOTAL PROTEIN, SERUM 8.3 g/dL (6.4-8.2)
[2021-09-23 21:57] LABS: VALPROIC ACID < 3 mcg/mL (50-100)
[2021-09-23] MEDS ORDERED: LORazepam 2 MG TABLET PO ONE (22:15)
[2021-09-23] MEDS ORDERED: HALOPERIDOL 5 MG TABLET PO ONE (22:15)
[2021-09-23] MEDS ORDERED: DiphenhydrAMINE HCL 50 MG CAPSULE PO ONE (22:15)
[2021-09-24 01:40] VITALS: BP 128/76
[2021-09-24 08:16] VITALS: BP 122/76
[2021-09-24] MEDS: ESCITALOPRAM OXALATE 10 MG TABLET PO SCH (13:49)
[2021-09-24] MEDS: DIVALPROEX SODIUM 500 MG DR TABLET PO SCH ×2 (13:49→16:16)
[2021-09-24] MEDS ORDERED: DOCUSATE SODIUM 100 MG CAPSULE PO PRN (14:30)
[2021-09-24] MEDS ORDERED: ACETAMINOPHEN 325 MG TABLET PO PRN (14:30)
[2021-09-24] MEDS ORDERED: LOPERAMIDE HCL 2 MG CAPSULE PO PRN (14:30)
[2021-09-24] MEDS ORDERED: PETROLATUM,WHITE 28 GM JELLY TP PRN (14:30)
[2021-09-24] MEDS ORDERED: MAGNESIUM HYDROXIDE SUSPENSION 30 ML UDCUP PO PRN (14:30)
[2021-09-24] MEDS ORDERED: NICOTINE 14 MG/24 HOUR PATCH TD PRN (14:30)
[2021-09-24] MEDS ORDERED: MAG HYDROX/AL HYDROX/SIMETH ES 30 ML SUSPENSION UDCUP PO PRN (14:30)
[2021-09-24] MEDS ORDERED: GuaiFENesin/D-METHORPHAN [SUGAR-FREE] 200-20MG/10 ML SYRUP UDCUP PO PRN (14:30)
[2021-09-24] MEDS ORDERED: CloNIDine HCL 0.1 MG TABLET PO PRN (14:30)
[2021-09-24] MEDS: LORazepam 2 MG TABLET PO PRN (14:34)
[2021-09-24] MEDS: LevETIRAcetam 500 MG TABLET PO SCH (16:16)
[2021-09-24] MEDS: RisperiDONE 2 MG TABLET PO SCH (16:16)
[2021-09-24 16:31] VITALS: BP 120/70
[2021-09-24] MEDS ORDERED: LevETIRAcetam 500 MG TABLET PO SCH (17:00)
[2021-09-25 05:35] VITALS: BP 148/98
[2021-09-25 05:43] VITALS: BP 136/96
[2021-09-25] MEDS: LORazepam 2 MG TABLET PO PRN ×2 (08:00→16:15)
[2021-09-25] MEDS: ESCITALOPRAM OXALATE 10 MG TABLET PO SCH (08:00)
[2021-09-25] MEDS: HALOPERIDOL 5 MG TABLET PO PRN ×2 (08:00→16:15)
[2021-09-25] MEDS: DIVALPROEX SODIUM 500 MG DR TABLET PO SCH ×3 (08:00→16:15)
[2021-09-25] MEDS: LevETIRAcetam 500 MG TABLET PO SCH ×2 (08:00→16:15)
[2021-09-25] MEDS: RisperiDONE 2 MG TABLET PO SCH ×2 (08:00→16:15)
[2021-09-25 08:07] VITALS: BP 129/89
[2021-09-25 16:44] VITALS: BP 130/90
[2021-09-26] MEDS: LORazepam 2 MG TABLET PO PRN ×2 (04:27→08:32)
[2021-09-26] MEDS: HALOPERIDOL 5 MG TABLET PO PRN ×2 (08:32→17:10)
[2021-09-26] MEDS: LevETIRAcetam 500 MG TABLET PO SCH ×2 (08:33→17:10)
[2021-09-26] MEDS: ESCITALOPRAM OXALATE 10 MG TABLET PO SCH (08:33)
[2021-09-26] MEDS: DIVALPROEX SODIUM 500 MG DR TABLET PO SCH ×3 (08:35→17:10)
[2021-09-26] MEDS: RisperiDONE 2 MG TABLET PO SCH ×2 (08:35→17:10)
[2021-09-26 16:21] VITALS: BP 128/64
[2021-09-26 17:10] VITALS: BP 159/90
[2021-09-26 18:55] VITALS: BP 134/77
[2021-09-26 22:37] VITALS: BP 116/78
[2021-09-27] MEDS: LORazepam 2 MG TABLET PO PRN ×3 (04:44→16:57)
[2021-09-27] MEDS: HALOPERIDOL 5 MG TABLET PO PRN ×3 (04:45→16:57)
[2021-09-27 08:21] VITALS: BP 128/88
[2021-09-27] MEDS: LevETIRAcetam 500 MG TABLET PO SCH ×2 (08:47→16:57)
[2021-09-27] MEDS: RisperiDONE 2 MG TABLET PO SCH ×2 (08:47→16:57)
[2021-09-27] MEDS: DIVALPROEX SODIUM 500 MG DR TABLET PO SCH ×3 (08:47→16:57)
[2021-09-27] MEDS: ESCITALOPRAM OXALATE 10 MG TABLET PO SCH (08:47)
[2021-09-27 16:16] VITALS: BP 112/62
[2021-09-27] MEDS ORDERED: LORazepam 2 MG/ML VIAL IM PRN (17:15)
[2021-09-27] MEDS ORDERED: PHENYTOIN 100 MG/4 ML SUSPENSION UDCUP PO SCH (21:00)
[2021-09-28 03:00] VITALS: BP 111/78
[2021-09-28] MEDS: LORazepam 2 MG TABLET PO PRN ×2 (03:13→08:10)
[2021-09-28] MEDS: RisperiDONE 2 MG TABLET PO SCH (08:10)
[2021-09-28] MEDS: HALOPERIDOL 5 MG TABLET PO PRN (08:10)
[2021-09-28] MEDS: ESCITALOPRAM OXALATE 10 MG TABLET PO SCH (08:10)
[2021-09-28] MEDS: LevETIRAcetam 500 MG TABLET PO SCH ×2 (08:10→16:13)
[2021-09-28] MEDS: DIVALPROEX SODIUM 500 MG DR TABLET PO SCH ×3 (08:11→16:14)
[2021-09-28 09:23] VITALS: BP 117/81
[2021-09-28 16:03] VITALS: BP 133/86
[2021-09-28] MEDS: RisperiDONE 3 MG TABLET PO SCH (16:14)
[2021-09-28] MEDS ORDERED: PHENYTOIN 100 MG/4 ML SUSPENSION UDCUP PO SCH (21:00)
[2021-09-28] MEDS: PHENYTOIN SODIUM 100 MG ER CAPSULE PO SCH (21:06)
[2021-09-29] MEDS: HALOPERIDOL 5 MG TABLET PO PRN ×2 (06:26→10:27)
[2021-09-29] MEDS: LORazepam 2 MG TABLET PO PRN ×2 (06:26→10:26)
[2021-09-29] MEDS: RisperiDONE 3 MG TABLET PO SCH ×2 (08:33→16:36)
[2021-09-29] MEDS: ESCITALOPRAM OXALATE 10 MG TABLET PO SCH (08:33)
[2021-09-29] MEDS: DIVALPROEX SODIUM 500 MG DR TABLET PO SCH ×3 (08:33→16:36)
[2021-09-29] MEDS: LevETIRAcetam 500 MG TABLET PO SCH ×2 (08:33→16:36)
[2021-09-29 08:38] VITALS: BP 108/63
[2021-09-29 16:32] VITALS: BP 122/74
[2021-09-29] MEDS: PHENYTOIN SODIUM 100 MG ER CAPSULE PO SCH (21:02)
[2021-09-29] MEDS: TraZODone HCL 50 MG TABLET PO SCH (21:02)
[2021-09-30 04:05] VITALS: BP 131/77
[2021-09-30 08:17] VITALS: BP 138/78
[2021-09-30] MEDS: HALOPERIDOL 5 MG TABLET PO PRN ×2 (08:24→16:54)
[2021-09-30] MEDS: LORazepam 2 MG TABLET PO PRN ×3 (08:24→20:55)
[2021-09-30] MEDS: DIVALPROEX SODIUM 500 MG DR TABLET PO SCH ×3 (08:24→16:54)
[2021-09-30] MEDS: ESCITALOPRAM OXALATE 10 MG TABLET PO SCH (08:25)
[2021-09-30] MEDS: RisperiDONE 3 MG TABLET PO SCH ×2 (08:25→16:54)
[2021-09-30] MEDS: LevETIRAcetam 500 MG TABLET PO SCH ×2 (08:25→16:54)
[2021-09-30 16:20] VITALS: BP 112/78
[2021-09-30 19:42] VITALS: BP 93/53
[2021-09-30] MEDS: ZOLPIDEM TARTRATE 10 MG TABLET PO PRN (20:55)
[2021-09-30] MEDS: TraZODone HCL 50 MG TABLET PO SCH (20:55)
[2021-09-30] MEDS: PHENYTOIN SODIUM 100 MG ER CAPSULE PO SCH (20:55)
[2021-10-01] MEDS: LevETIRAcetam 500 MG TABLET PO SCH ×2 (08:22→17:00)
[2021-10-01] MEDS: DIVALPROEX SODIUM 500 MG DR TABLET PO SCH ×3 (08:22→17:00)
[2021-10-01] MEDS: HALOPERIDOL 5 MG TABLET PO PRN ×2 (08:23→17:00)
[2021-10-01] MEDS: RisperiDONE 3 MG TABLET PO SCH ×2 (08:23→17:00)
[2021-10-01] MEDS: ESCITALOPRAM OXALATE 10 MG TABLET PO SCH (08:23)
[2021-10-01] MEDS: LORazepam 2 MG TABLET PO PRN ×3 (08:23→21:03)
[2021-10-01 08:41] VITALS: BP 98/64
[2021-10-01 16:09] VITALS: BP 119/73
[2021-10-01] MEDS: TraZODone HCL 50 MG TABLET PO SCH (21:03)
[2021-10-01] MEDS: PHENYTOIN SODIUM 100 MG ER CAPSULE PO SCH (21:03)
[2021-10-02 07:03] VITALS: BP 127/78
[2021-10-02 08:42] VITALS: BP 104/60
[2021-10-02 08:50] VITALS: BP 112/70
[2021-10-02] MEDS: DIVALPROEX SODIUM 500 MG DR TABLET PO SCH ×3 (08:56→16:18)
[2021-10-02] MEDS: LevETIRAcetam 500 MG TABLET PO SCH ×2 (08:56→16:17)
[2021-10-02] MEDS: RisperiDONE 3 MG TABLET PO SCH ×2 (08:57→16:18)
[2021-10-02] MEDS: ESCITALOPRAM OXALATE 10 MG TABLET PO SCH (08:57)
[2021-10-02] MEDS: LORazepam 2 MG TABLET PO PRN ×3 (08:58→20:46)
[2021-10-02] MEDS: HALOPERIDOL 5 MG TABLET PO PRN ×2 (14:02→18:21)
[2021-10-02 16:25] VITALS: BP 136/80
[2021-10-02] MEDS: PHENYTOIN SODIUM 100 MG ER CAPSULE PO SCH (20:46)
[2021-10-02] MEDS: TraZODone HCL 50 MG TABLET PO SCH (20:46)
[2021-10-03 07:05] VITALS: BP 128/78
[2021-10-03] MEDS: LORazepam 2 MG TABLET PO PRN ×3 (07:58→17:33)
[2021-10-03] MEDS: HALOPERIDOL 5 MG TABLET PO PRN ×3 (07:58→17:32)
[2021-10-03] MEDS: DIVALPROEX SODIUM 500 MG DR TABLET PO SCH ×3 (07:59→17:32)
[2021-10-03] MEDS: RisperiDONE 3 MG TABLET PO SCH ×2 (08:00→17:32)
[2021-10-03] MEDS: ESCITALOPRAM OXALATE 10 MG TABLET PO SCH (08:00)
[2021-10-03 09:15] VITALS: BP 127/85
[2021-10-03] MEDS: LevETIRAcetam 500 MG TABLET PO SCH ×2 (11:04→17:32)
[2021-10-03 16:16] VITALS: BP 117/86
[2021-10-03] MEDS: TraZODone HCL 50 MG TABLET PO SCH (20:43)
[2021-10-03] MEDS: PHENYTOIN SODIUM 100 MG ER CAPSULE PO SCH (20:43)
[2021-10-04 04:15] VITALS: BP 108/64
[2021-10-04 07:47] LABS: PHENYTOIN (DILANTIN) 0.9 mcg/mL (10.0-20.0)
[2021-10-04 08:47] VITALS: BP 121/64
[2021-10-04] MEDS: ESCITALOPRAM OXALATE 10 MG TABLET PO SCH (09:08)
[2021-10-04] MEDS: LORazepam 2 MG TABLET PO PRN ×2 (09:08→17:03)
[2021-10-04] MEDS: RisperiDONE 3 MG TABLET PO SCH ×2 (09:08→16:57)
[2021-10-04] MEDS: HALOPERIDOL 5 MG TABLET PO PRN ×2 (09:08→16:57)
[2021-10-04] MEDS: DIVALPROEX SODIUM 500 MG DR TABLET PO SCH ×3 (09:08→16:57)
[2021-10-04] MEDS: LevETIRAcetam 500 MG TABLET PO SCH ×2 (09:42→16:57)
[2021-10-04 16:20] VITALS: BP 122/83
[2021-10-04] MEDS: PHENYTOIN SODIUM 100 MG ER CAPSULE PO SCH (20:40)
[2021-10-04] MEDS: TraZODone HCL 50 MG TABLET PO SCH (20:41)
[2021-10-05 04:21] VITALS: BP 129/88
[2021-10-05] MEDS: LevETIRAcetam 500 MG TABLET PO SCH ×2 (08:14→17:37)
[2021-10-05] MEDS: LORazepam 2 MG TABLET PO PRN ×3 (08:15→17:38)
[2021-10-05] MEDS: DIVALPROEX SODIUM 500 MG DR TABLET PO SCH ×3 (08:15→17:37)
[2021-10-05] MEDS: HALOPERIDOL 5 MG TABLET PO PRN ×3 (08:15→17:38)
[2021-10-05] MEDS: RisperiDONE 3 MG TABLET PO SCH ×2 (08:15→17:37)
[2021-10-05] MEDS: ESCITALOPRAM OXALATE 10 MG TABLET PO SCH (08:15)
[2021-10-05 09:19] VITALS: BP 119/86
[2021-10-05 15:56] LABS: GLUCOMETER DEV NAME(LOC) POC.BV
[2021-10-05 16:22] VITALS: BP 125/83
[2021-10-05] MEDS: PHENYTOIN SODIUM 100 MG ER CAPSULE PO SCH (20:28)
[2021-10-05] MEDS: TraZODone HCL 50 MG TABLET PO SCH (20:28)
[2021-10-05] MEDS: ZOLPIDEM TARTRATE 10 MG TABLET PO PRN (20:28)
[2021-10-06] MEDS: LORazepam 2 MG TABLET PO PRN ×3 (03:42→17:01)
[2021-10-06 03:43] VITALS: BP 119/77
[2021-10-06 08:31] VITALS: BP 135/83
[2021-10-06] MEDS: RisperiDONE 3 MG TABLET PO SCH ×2 (08:43→17:01)
[2021-10-06] MEDS: ESCITALOPRAM OXALATE 10 MG TABLET PO SCH (08:43)
[2021-10-06] MEDS: DIVALPROEX SODIUM 500 MG DR TABLET PO SCH ×3 (08:43→17:00)
[2021-10-06] MEDS: LevETIRAcetam 500 MG TABLET PO SCH ×2 (08:43→17:00)
[2021-10-06] MEDS: HALOPERIDOL 5 MG TABLET PO PRN ×2 (08:44→17:01)
[2021-10-06 16:05] VITALS: BP 129/80
[2021-10-06] MEDS: TraZODone HCL 50 MG TABLET PO SCH (20:51)
[2021-10-06] MEDS: PHENYTOIN SODIUM 100 MG ER CAPSULE PO SCH (20:51)
[2021-10-06] MEDS ORDERED: PHENYTOIN SODIUM 100 MG ER CAPSULE PO ONE (21:00)
[2021-10-07 07:02] VITALS: BP 111/76
[2021-10-07 08:25] VITALS: BP 110/62
[2021-10-07] MEDS: RisperiDONE 3 MG TABLET PO SCH ×2 (08:28→17:17)
[2021-10-07] MEDS: LevETIRAcetam 500 MG TABLET PO SCH ×2 (08:29→17:17)
[2021-10-07] MEDS: DIVALPROEX SODIUM 500 MG DR TABLET PO SCH ×3 (08:29→17:17)
[2021-10-07] MEDS: ESCITALOPRAM OXALATE 10 MG TABLET PO SCH (08:29)
[2021-10-07] MEDS: LORazepam 2 MG TABLET PO PRN ×3 (08:31→22:12)
[2021-10-07] MEDS: HALOPERIDOL 5 MG TABLET PO PRN ×3 (09:54→22:13)
[2021-10-07 16:18] VITALS: BP 128/68
[2021-10-07] MEDS: PHENYTOIN SODIUM 100 MG ER CAPSULE PO SCH (20:41)
[2021-10-07] MEDS: ZOLPIDEM TARTRATE 10 MG TABLET PO PRN (20:41)
[2021-10-07] MEDS: TraZODone HCL 50 MG TABLET PO SCH (20:41)
[2021-10-08 06:36] VITALS: BP 116/77
[2021-10-08] MEDS: LORazepam 2 MG TABLET PO PRN ×2 (07:58→18:20)
[2021-10-08] MEDS: HALOPERIDOL 5 MG TABLET PO PRN ×2 (07:58→18:20)
[2021-10-08] MEDS: DIVALPROEX SODIUM 500 MG DR TABLET PO SCH ×3 (08:00→17:58)
[2021-10-08] MEDS: ESCITALOPRAM OXALATE 10 MG TABLET PO SCH (08:00)
[2021-10-08] MEDS: RisperiDONE 3 MG TABLET PO SCH ×2 (08:00→17:58)
[2021-10-08] MEDS: LevETIRAcetam 500 MG TABLET PO SCH ×2 (08:00→17:58)
[2021-10-08 08:24] VITALS: BP 103/63
[2021-10-08 17:14] VITALS: BP 110/62
[2021-10-08 18:00] VITALS: BP 111/68
[2021-10-08] MEDS: IBUPROFEN 400 MG TABLET PO PRN (18:04)
[2021-10-08] MEDS: PHENYTOIN SODIUM 100 MG ER CAPSULE PO SCH (20:57)
[2021-10-08] MEDS: TraZODone HCL 50 MG TABLET PO SCH (20:57)
[2021-10-09 05:54] VITALS: BP 118/71
[2021-10-09 08:57] VITALS: BP 110/71
[2021-10-09] MEDS: LevETIRAcetam 500 MG TABLET PO SCH ×2 (09:35→16:31)
[2021-10-09] MEDS: RisperiDONE 3 MG TABLET PO SCH ×2 (09:36→16:30)
[2021-10-09] MEDS: ESCITALOPRAM OXALATE 10 MG TABLET PO SCH (09:36)
[2021-10-09] MEDS: DIVALPROEX SODIUM 500 MG DR TABLET PO SCH ×3 (09:36→16:31)
[2021-10-09] MEDS: HALOPERIDOL 5 MG TABLET PO PRN ×2 (11:43→16:31)
[2021-10-09] MEDS: LORazepam 2 MG TABLET PO PRN ×3 (11:43→21:20)
[2021-10-09 16:20] VITALS: BP 110/73
[2021-10-09] MEDS: ZOLPIDEM TARTRATE 10 MG TABLET PO PRN (21:20)
[2021-10-09] MEDS: TraZODone HCL 50 MG TABLET PO SCH (21:20)
[2021-10-09] MEDS: PHENYTOIN SODIUM 100 MG ER CAPSULE PO SCH (21:20)
[2021-10-10 00:32] VITALS: BP 130/90
[2021-10-10] MEDS: HALOPERIDOL 5 MG TABLET PO PRN ×2 (00:35→16:43)
[2021-10-10 08:17] VITALS: BP 124/72
[2021-10-10] MEDS: DIVALPROEX SODIUM 500 MG DR TABLET PO SCH ×3 (09:07→16:42)
[2021-10-10] MEDS: LevETIRAcetam 500 MG TABLET PO SCH ×2 (09:08→16:43)
[2021-10-10] MEDS: RisperiDONE 3 MG TABLET PO SCH ×2 (09:08→16:43)
[2021-10-10] MEDS: ESCITALOPRAM OXALATE 10 MG TABLET PO SCH (09:08)
[2021-10-10] MEDS: LORazepam 2 MG TABLET PO PRN ×2 (09:09→16:43)
[2021-10-10 16:14] VITALS: BP 118/70
[2021-10-10] MEDS: TraZODone HCL 50 MG TABLET PO SCH (20:45)
[2021-10-10] MEDS: PHENYTOIN SODIUM 100 MG ER CAPSULE PO SCH (20:45)
[2021-10-10] MEDS: ZOLPIDEM TARTRATE 10 MG TABLET PO PRN (20:45)
[2021-10-11] MEDS: LORazepam 2 MG TABLET PO PRN ×4 (04:38→20:51)
[2021-10-11 05:10] VITALS: BP 115/76
[2021-10-11 08:26] VITALS: BP 111/72
[2021-10-11] MEDS: HALOPERIDOL 5 MG TABLET PO PRN ×2 (09:05→16:24)
[2021-10-11] MEDS: LevETIRAcetam 500 MG TABLET PO SCH ×2 (09:05→16:24)
[2021-10-11] MEDS: ESCITALOPRAM OXALATE 10 MG TABLET PO SCH (09:05)
[2021-10-11] MEDS: RisperiDONE 3 MG TABLET PO SCH ×2 (09:05→16:24)
[2021-10-11] MEDS: DIVALPROEX SODIUM 500 MG DR TABLET PO SCH ×3 (09:05→16:24)
[2021-10-11 16:26] VITALS: BP 128/67
[2021-10-11] MEDS: TraZODone HCL 50 MG TABLET PO SCH (20:51)
[2021-10-11] MEDS: PHENYTOIN SODIUM 100 MG ER CAPSULE PO SCH (20:51)
[2021-10-12 06:27] VITALS: BP 115/81
[2021-10-12] MEDS: LORazepam 2 MG TABLET PO PRN (06:35)
[2021-10-12 08:29] VITALS: BP 137/82
[2021-10-12] MEDS: RisperiDONE 3 MG TABLET PO SCH ×2 (08:57→17:13)
[2021-10-12] MEDS: HALOPERIDOL 5 MG TABLET PO PRN ×2 (08:57→13:57)
[2021-10-12] MEDS: ESCITALOPRAM OXALATE 10 MG TABLET PO SCH (08:57)
[2021-10-12] MEDS: LevETIRAcetam 500 MG TABLET PO SCH ×2 (08:57→17:13)
[2021-10-12] MEDS: DIVALPROEX SODIUM 500 MG DR TABLET PO SCH ×3 (08:57→17:13)
[2021-10-12 16:17] VITALS: BP 112/68
[2021-10-12] MEDS: TraZODone HCL 50 MG TABLET PO SCH (21:00)
[2021-10-12] MEDS: PHENYTOIN SODIUM 100 MG ER CAPSULE PO SCH (21:00)
[2021-10-13 02:26] VITALS: BP 125/75
[2021-10-13 04:50] VITALS: BP 116/67
[2021-10-13] MEDS: HALOPERIDOL 5 MG TABLET PO PRN ×2 (05:21→18:20)
[2021-10-13 08:34] VITALS: BP 129/78
[2021-10-13] MEDS: LevETIRAcetam 500 MG TABLET PO SCH ×2 (08:39→17:00)
[2021-10-13] MEDS: DIVALPROEX SODIUM 500 MG DR TABLET PO SCH ×3 (08:39→17:00)
[2021-10-13] MEDS: RisperiDONE 3 MG TABLET PO SCH ×2 (08:39→17:00)
[2021-10-13] MEDS: ESCITALOPRAM OXALATE 10 MG TABLET PO SCH (08:40)
[2021-10-13] MEDS ORDERED: LORazepam 2 MG/ML VIAL IM ONE (09:30)
[2021-10-13] MEDS ORDERED: ChlorproMAZINE HCL 50 MG/2 ML AMP IM ONE (09:30)
[2021-10-13] MEDS ORDERED: ChlorproMAZINE HCL 50 MG/2 ML AMP ONE (09:32)
[2021-10-13] MEDS ORDERED: LORazepam 2 MG/ML VIAL ONE (09:32)
[2021-10-13 16:19] VITALS: BP 113/76
[2021-10-13] MEDS: PHENYTOIN SODIUM 100 MG ER CAPSULE PO SCH (20:03)
[2021-10-13] MEDS: TraZODone HCL 50 MG TABLET PO SCH (20:03)
[2021-10-14 02:28] VITALS: BP 122/68
[2021-10-14] MEDS: HALOPERIDOL 5 MG TABLET PO PRN ×2 (03:45→22:22)
[2021-10-14 08:14] VITALS: BP 115/76
[2021-10-14] MEDS: RisperiDONE 3 MG TABLET PO SCH ×2 (08:21→16:43)
[2021-10-14] MEDS: DIVALPROEX SODIUM 500 MG DR TABLET PO SCH ×3 (08:21→16:43)
[2021-10-14] MEDS: LevETIRAcetam 500 MG TABLET PO SCH ×2 (08:22→16:43)
[2021-10-14] MEDS: ESCITALOPRAM OXALATE 10 MG TABLET PO SCH (08:22)
[2021-10-14 11:15] VITALS: BP 116/74
[2021-10-14 16:17] VITALS: BP 136/81
[2021-10-14] MEDS: PHENYTOIN SODIUM 100 MG ER CAPSULE PO SCH (20:38)
[2021-10-14] MEDS: TraZODone HCL 50 MG TABLET PO SCH (20:38)
[2021-10-15 16:30] VITALS: BP 135/78
[2021-10-15 16:33] VITALS: BP 135/82
[2021-10-15] MEDS: RisperiDONE 3 MG TABLET PO SCH (16:56)
[2021-10-15] MEDS: LevETIRAcetam 500 MG TABLET PO SCH (16:56)
[2021-10-15] MEDS: DIVALPROEX SODIUM 500 MG DR TABLET PO SCH (16:56)
[2021-10-15] MEDS: HALOPERIDOL 5 MG TABLET PO PRN (17:08)
[2021-10-15] MEDS: TraZODone HCL 50 MG TABLET PO SCH (21:39)
[2021-10-15] MEDS: PHENYTOIN SODIUM 100 MG ER CAPSULE PO SCH (21:39)
[2021-10-16] MEDS: HALOPERIDOL 5 MG TABLET PO PRN ×4 (03:33→22:49)
[2021-10-16 05:15] VITALS: BP_SYST 127; BP_SYST 128; BP_DIAS 85; BP_DIAS 87
[2021-10-16 05:30] VITALS: BP 134/88
[2021-10-16 05:53] LABS: COVID AG,FIA SOURCE NASAL SWAB
[2021-10-16 06:00] VITALS: BP 132/85
[2021-10-16 06:30] VITALS: BP 127/83
[2021-10-16 08:13] VITALS: BP 130/82
[2021-10-16] MEDS: LevETIRAcetam 500 MG TABLET PO SCH ×2 (08:13→19:04)
[2021-10-16 08:14] VITALS: BP 130/82
[2021-10-16] MEDS: DIVALPROEX SODIUM 500 MG DR TABLET PO SCH ×3 (08:14→19:04)
[2021-10-16] MEDS: RisperiDONE 3 MG TABLET PO SCH ×2 (08:14→19:04)
[2021-10-16] MEDS: ESCITALOPRAM OXALATE 10 MG TABLET PO SCH ×2 (08:14→08:19)
[2021-10-16] MEDS ORDERED: ChlorproMAZINE HCL 50 MG/2 ML AMP ONE (12:27)
[2021-10-16] MEDS ORDERED: LORazepam 2 MG/ML VIAL ONE (12:27)
[2021-10-16] MEDS ORDERED: LORazepam 2 MG/ML VIAL IM ONE (12:30)
[2021-10-16] MEDS ORDERED: ChlorproMAZINE HCL 50 MG/2 ML AMP IM ONE (12:30)
[2021-10-16] MEDS: TraZODone HCL 50 MG TABLET PO SCH (20:08)
[2021-10-16] MEDS: PHENYTOIN SODIUM 100 MG ER CAPSULE PO SCH (20:08)
[2021-10-16] MEDS: ALBUTEROL SULFATE HFA 90 MCG/PUFF 8 GM INHALER IH PRN (20:17)
[2021-10-17] MEDS: HALOPERIDOL 5 MG TABLET PO PRN ×4 (07:50→21:16)
[2021-10-17] MEDS: RisperiDONE 3 MG TABLET PO SCH ×2 (07:54→15:51)
[2021-10-17] MEDS: DIVALPROEX SODIUM 500 MG DR TABLET PO SCH ×3 (07:54→15:51)
[2021-10-17] MEDS: ESCITALOPRAM OXALATE 10 MG TABLET PO SCH (07:54)
[2021-10-17] MEDS: LevETIRAcetam 500 MG TABLET PO SCH ×2 (07:55→15:51)
[2021-10-17 08:07] LABS: HIV 1-2 SCREEN 4TH GEN W/RFLX Non Reactive (Non Reactive)
[2021-10-17 08:20] VITALS: BP 109/74
[2021-10-17 08:21] VITALS: BP 109/74
[2021-10-17] MEDS: ALBUTEROL SULFATE HFA 90 MCG/PUFF 8 GM INHALER IH PRN ×2 (08:43→17:38)
[2021-10-17 16:10] VITALS: BP 140/90
[2021-10-17 16:39] VITALS: BP 140/90
[2021-10-17 20:27] VITALS: BP 132/84
[2021-10-17] MEDS: TraZODone HCL 50 MG TABLET PO SCH (21:16)
[2021-10-17] MEDS: PHENYTOIN SODIUM 100 MG ER CAPSULE PO SCH (21:16)
[2021-10-18] MEDS: HALOPERIDOL 5 MG TABLET PO PRN ×3 (04:14→12:34)
[2021-10-18] MEDS: RisperiDONE 3 MG TABLET PO SCH ×2 (07:21→17:00)
[2021-10-18] MEDS: ESCITALOPRAM OXALATE 10 MG TABLET PO SCH (07:21)
[2021-10-18] MEDS: DIVALPROEX SODIUM 500 MG DR TABLET PO SCH ×3 (07:21→17:00)
[2021-10-18] MEDS: LevETIRAcetam 500 MG TABLET PO SCH ×2 (07:21→17:00)
[2021-10-18 08:13] VITALS: BP 142/94
[2021-10-18 08:14] VITALS: BP 142/94
[2021-10-18] MEDS ORDERED: DiphenhydrAMINE HCL 50 MG/ML VIAL ONE (16:09)
[2021-10-18] MEDS ORDERED: LORazepam 2 MG/ML VIAL ONE (16:09)
[2021-10-18] MEDS ORDERED: ChlorproMAZINE HCL 50 MG/2 ML AMP ONE (16:09)
[2021-10-18] MEDS ORDERED: DiphenhydrAMINE HCL 50 MG/ML VIAL IM ONE (16:15)
[2021-10-18] MEDS ORDERED: LORazepam 2 MG/ML VIAL IM ONE (16:15)
[2021-10-18] MEDS ORDERED: ChlorproMAZINE HCL 50 MG/2 ML AMP IM ONE (16:15)
[2021-10-18 17:14] VITALS: BP 143/86
[2021-10-18 17:19] VITALS: BP 143/86
[2021-10-18] MEDS ORDERED: BACITRACIN 28 GM OINTMENT TP PRN (18:30)
[2021-10-18] MEDS: PHENYTOIN SODIUM 100 MG ER CAPSULE PO SCH (21:00)
[2021-10-18] MEDS: TraZODone HCL 50 MG TABLET PO SCH (21:00)
[2021-10-19] MEDS: DIVALPROEX SODIUM 500 MG DR TABLET PO SCH ×4 (07:42→18:00)
[2021-10-19] MEDS: RisperiDONE 3 MG TABLET PO SCH ×3 (07:42→20:54)
[2021-10-19] MEDS: LevETIRAcetam 500 MG TABLET PO SCH ×3 (07:43→18:00)
[2021-10-19] MEDS: ESCITALOPRAM OXALATE 10 MG TABLET PO SCH (07:43)
[2021-10-19] MEDS: ALBUTEROL SULFATE HFA 90 MCG/PUFF 8 GM INHALER IH PRN (07:44)
[2021-10-19] MEDS: HALOPERIDOL 5 MG TABLET PO PRN (07:45)
[2021-10-19] MEDS ORDERED: LORazepam 2 MG/ML VIAL IM ONE (08:00)
[2021-10-19] MEDS ORDERED: DiphenhydrAMINE HCL 50 MG/ML VIAL IM ONE (08:00)
[2021-10-19] MEDS ORDERED: ChlorproMAZINE HCL 50 MG/2 ML AMP IM ONE (08:00)
[2021-10-19] MEDS ORDERED: DiphenhydrAMINE HCL 50 MG/ML VIAL ONE (08:05)
[2021-10-19] MEDS ORDERED: LORazepam 2 MG/ML VIAL ONE (08:05)
[2021-10-19] MEDS ORDERED: ChlorproMAZINE HCL 50 MG/2 ML AMP ONE (08:05)
[2021-10-19 08:29] VITALS: BP 143/93
[2021-10-19 10:06] VITALS: BP 143/93
[2021-10-19 17:14] VITALS: BP 108/64
[2021-10-19] MEDS: TraZODone HCL 50 MG TABLET PO SCH (20:52)
[2021-10-19] MEDS: PHENYTOIN SODIUM 100 MG ER CAPSULE PO SCH (20:52)
[2021-10-20] MEDS: HALOPERIDOL 5 MG TABLET PO PRN ×3 (05:55→17:39)
[2021-10-20] MEDS: RisperiDONE 3 MG TABLET PO SCH ×2 (07:26→16:37)
[2021-10-20] MEDS: DIVALPROEX SODIUM 500 MG DR TABLET PO SCH ×3 (07:26→16:37)
[2021-10-20] MEDS: ESCITALOPRAM OXALATE 10 MG TABLET PO SCH (07:26)
[2021-10-20] MEDS: LevETIRAcetam 500 MG TABLET PO SCH ×2 (07:26→16:37)
[2021-10-20 09:36] VITALS: BP 162/92
[2021-10-20] MEDS: LORazepam 2 MG TABLET PO PRN (12:52)
[2021-10-20 16:27] VITALS: BP 149/94
[2021-10-20] MEDS: PHENYTOIN SODIUM 100 MG ER CAPSULE PO SCH (20:46)
[2021-10-20] MEDS: TraZODone HCL 50 MG TABLET PO SCH (20:47)
[2021-10-21] MEDS: LORazepam 2 MG TABLET PO PRN ×2 (05:21→17:48)
[2021-10-21] MEDS: HALOPERIDOL 5 MG TABLET PO PRN ×2 (05:21→17:48)
[2021-10-21] MEDS: ESCITALOPRAM OXALATE 10 MG TABLET PO SCH (08:08)
[2021-10-21] MEDS: DIVALPROEX SODIUM 500 MG DR TABLET PO SCH ×3 (08:08→16:53)
[2021-10-21] MEDS: LevETIRAcetam 500 MG TABLET PO SCH ×2 (08:08→16:54)
[2021-10-21] MEDS: RisperiDONE 3 MG TABLET PO SCH ×2 (08:08→16:54)
[2021-10-21 08:31] VITALS: BP 119/73
[2021-10-21 16:30] VITALS: BP 140/89
[2021-10-21] MEDS: PHENYTOIN SODIUM 100 MG ER CAPSULE PO SCH (20:37)
[2021-10-21] MEDS: TraZODone HCL 50 MG TABLET PO SCH (20:37)
[2021-10-22] MEDS: LORazepam 2 MG TABLET PO PRN (07:59)
[2021-10-22] MEDS: RisperiDONE 3 MG TABLET PO SCH ×2 (07:59→16:25)
[2021-10-22] MEDS: ESCITALOPRAM OXALATE 10 MG TABLET PO SCH (07:59)
[2021-10-22] MEDS: HALOPERIDOL 5 MG TABLET PO PRN (07:59)
[2021-10-22] MEDS: DIVALPROEX SODIUM 500 MG DR TABLET PO SCH ×3 (07:59→16:25)
[2021-10-22] MEDS: LevETIRAcetam 500 MG TABLET PO SCH ×2 (07:59→16:25)
[2021-10-22 08:13] VITALS: BP 111/78
[2021-10-22 12:12] LABS: COVID AG,FIA SOURCE NASOPHARYNGEAL
[2021-10-22] MEDS: PHENYTOIN SODIUM 100 MG ER CAPSULE PO SCH (20:25)
[2021-10-22] MEDS: TraZODone HCL 50 MG TABLET PO SCH (20:25)
[2021-10-23] MEDS: HALOPERIDOL 5 MG TABLET PO PRN ×3 (08:08→16:08)
[2021-10-23 08:09] VITALS: BP 123/62
[2021-10-23] MEDS: RisperiDONE 3 MG TABLET PO SCH ×2 (08:09→16:07)
[2021-10-23] MEDS: DIVALPROEX SODIUM 500 MG DR TABLET PO SCH ×3 (08:10→16:08)
[2021-10-23] MEDS: LevETIRAcetam 500 MG TABLET PO SCH ×2 (08:10→16:08)
[2021-10-23] MEDS: ESCITALOPRAM OXALATE 10 MG TABLET PO SCH (08:10)
[2021-10-23] MEDS: LORazepam 2 MG TABLET PO PRN ×2 (08:16→16:08)
[2021-10-23] MEDS: PHENYTOIN SODIUM 100 MG ER CAPSULE PO SCH (20:12)
[2021-10-23] MEDS: TraZODone HCL 50 MG TABLET PO SCH (20:12)
[2021-10-24] MEDS: LevETIRAcetam 500 MG TABLET PO SCH ×2 (08:00→15:56)
[2021-10-24] MEDS: ESCITALOPRAM OXALATE 10 MG TABLET PO SCH (08:00)
[2021-10-24] MEDS: RisperiDONE 3 MG TABLET PO SCH ×2 (08:01→15:56)
[2021-10-24] MEDS: DIVALPROEX SODIUM 500 MG DR TABLET PO SCH ×4 (08:01→15:56)
[2021-10-24] MEDS: LORazepam 2 MG TABLET PO PRN ×2 (08:01→15:56)
[2021-10-24 08:15] VITALS: BP 124/75
[2021-10-24 09:56] LABS: COVID AG,FIA SOURCE NASAL SWAB
[2021-10-24] MEDS: HALOPERIDOL 5 MG TABLET PO PRN (11:13)
[2021-10-24 16:03] VITALS: BP 105/78
[2021-10-24] MEDS: TraZODone HCL 50 MG TABLET PO SCH (21:06)
[2021-10-24] MEDS: PHENYTOIN SODIUM 100 MG ER CAPSULE PO SCH (21:06)
[2021-10-25] MEDS: LORazepam 2 MG TABLET PO PRN ×4 (00:18→17:39)
[2021-10-25 08:09] VITALS: BP 110/74
[2021-10-25] MEDS: LevETIRAcetam 500 MG TABLET PO SCH ×2 (08:11→17:38)
[2021-10-25] MEDS: DIVALPROEX SODIUM 500 MG DR TABLET PO SCH ×3 (08:11→17:37)
[2021-10-25] MEDS: ESCITALOPRAM OXALATE 10 MG TABLET PO SCH (08:11)
[2021-10-25] MEDS: RisperiDONE 3 MG TABLET PO SCH ×2 (08:11→17:39)
[2021-10-25] MEDS: HALOPERIDOL 5 MG TABLET PO PRN ×2 (08:41→13:06)
[2021-10-25] MEDS: IBUPROFEN 400 MG TABLET PO PRN (13:06)
[2021-10-25] MEDS: TraZODone HCL 50 MG TABLET PO SCH (22:01)
[2021-10-25] MEDS: PHENYTOIN SODIUM 100 MG ER CAPSULE PO SCH (22:01)
[2021-10-26 08:31] VITALS: BP 116/75
[2021-10-26] MEDS: ESCITALOPRAM OXALATE 10 MG TABLET PO SCH (08:59)
[2021-10-26] MEDS: DIVALPROEX SODIUM 500 MG DR TABLET PO SCH ×3 (08:59→17:03)
[2021-10-26] MEDS: RisperiDONE 3 MG TABLET PO SCH ×2 (08:59→17:04)
[2021-10-26] MEDS: LevETIRAcetam 500 MG TABLET PO SCH ×2 (08:59→17:03)
[2021-10-26] MEDS: LORazepam 2 MG TABLET PO PRN ×4 (09:00→23:28)
[2021-10-26] MEDS: ONDANSETRON HCL 4 MG TABLET PO PRN ×2 (09:00→09:34)
[2021-10-26 16:28] VITALS: BP 110/70
[2021-10-26] MEDS: HALOPERIDOL 5 MG TABLET PO PRN (18:00)
[2021-10-26] MEDS: TraZODone HCL 50 MG TABLET PO SCH (20:54)
[2021-10-26] MEDS: PHENYTOIN SODIUM 100 MG ER CAPSULE PO SCH (20:54)
[2021-10-27] MEDS: LevETIRAcetam 500 MG TABLET PO SCH ×2 (08:17→16:42)
[2021-10-27] MEDS: DIVALPROEX SODIUM 500 MG DR TABLET PO SCH ×3 (08:17→16:41)
[2021-10-27] MEDS: RisperiDONE 3 MG TABLET PO SCH ×2 (08:17→16:42)
[2021-10-27] MEDS: ESCITALOPRAM OXALATE 10 MG TABLET PO SCH (08:18)
[2021-10-27] MEDS: LORazepam 2 MG TABLET PO PRN ×2 (08:18→18:19)
[2021-10-27 08:35] VITALS: BP 123/73
[2021-10-27 16:20] VITALS: BP 124/80
[2021-10-27] MEDS: HALOPERIDOL 5 MG TABLET PO PRN (18:19)
[2021-10-27] MEDS: TraZODone HCL 50 MG TABLET PO SCH (20:28)
[2021-10-27] MEDS: PHENYTOIN SODIUM 100 MG ER CAPSULE PO SCH (20:28)
[2021-10-28] MEDS: LevETIRAcetam 500 MG TABLET PO SCH ×2 (07:40→16:41)
[2021-10-28] MEDS: RisperiDONE 3 MG TABLET PO SCH ×2 (07:41→16:42)
[2021-10-28] MEDS: LORazepam 2 MG TABLET PO PRN ×2 (07:41→18:00)
[2021-10-28] MEDS: DIVALPROEX SODIUM 500 MG DR TABLET PO SCH ×3 (07:41→16:41)
[2021-10-28] MEDS: ESCITALOPRAM OXALATE 10 MG TABLET PO SCH (07:41)
[2021-10-28 08:21] VITALS: BP 126/88
[2021-10-28 16:55] VITALS: BP 143/70
[2021-10-28] MEDS: HALOPERIDOL 5 MG TABLET PO PRN (18:00)
[2021-10-28] MEDS: TraZODone HCL 50 MG TABLET PO SCH (20:41)
[2021-10-28] MEDS: PHENYTOIN SODIUM 100 MG ER CAPSULE PO SCH (20:42)
[2021-10-29] MEDS: LevETIRAcetam 500 MG TABLET PO SCH (08:00)
[2021-10-29] MEDS: RisperiDONE 3 MG TABLET PO SCH (08:00)
[2021-10-29] MEDS: DIVALPROEX SODIUM 500 MG DR TABLET PO SCH ×2 (08:01→13:20)
[2021-10-29] MEDS: ESCITALOPRAM OXALATE 10 MG TABLET PO SCH (08:01)
[2021-10-29] MEDS: LORazepam 2 MG TABLET PO PRN (08:01)
[2021-10-29 10:12] VITALS: BP 135/95
== END 2021-10-29 15:08 | disposition home or self-care (01) | DRG 885 ==
LOC: EMS 20:06 → B3A 09-24 00:10 → 3EC 10-15 16:30
PROVIDERS: ADMIT Psychiatry & Neurology Child & Adolescent Psychiatry; ATTEND Psychiatry & Neurology Child & Adolescent Psychiatry
DX: F25.1 Schizoaffective disorder, depressive type (principal); R45.851 Suicidal ideations; E03.9 Hypothyroidism, unspecified; G40.909 Epilepsy, unspecified, not intractable, without status epilepticus; I10 Essential (primary) hypertension; J45.909 Unspecified asthma, uncomplicated; K21.9 Gastro-esophageal reflux disease without esophagitis; F41.9 Anxiety disorder, unspecified; F25.0 Schizoaffective disorder, bipolar type; Z20.822 Contact with and (suspected) exposure to COVID-19; Z91.011 Allergy to milk products; Z91.018 Allergy to other foods; Z59.00 Homelessness unspecified; Z87.891 Personal history of nicotine dependence; Z91.19 Patient's noncompliance with other medical treatment and regimen
CPT/HCPCS: 80053; 80164; 80185; 85025; 87081; 87389; 99285; G0480; J1200; J2060; J3230; J3535; Q0162

== ENCOUNTER 2021-09-26 19:18 | Emergency (ER) | payer MEDICARE ==
[~2021-09-26] VITALS: Ht 167.6 cm; Wt 77.0 kg
[2021-09-26] MEDS ORDERED: LevETIRAcetam 1,000 MG in DEXTROSE 5%-WATER 100 ML IV ONE (20:00)
[2021-09-26] MEDS ORDERED: SODIUM CHLORIDE 0.9% 1,000 ML IV ONE (20:00)
[2021-09-26] MEDS ORDERED: ONDANSETRON HCL 4 MG/2 ML VIAL IVP ONE (20:00)
[2021-09-26 20:03] LABS: BASOPHILS % (AUTO) 0.4 % (0.0-2.0); EOSINOPHILS % (AUTO) 2.1 % (1.0-6.0); HEMATOCRIT 37.8 % (41-53); HEMOGLOBIN 12.9 g/dL (13.5-17.5); LYMPHOCYTES % (AUTO) 34.3 % (22.0-44.0); MEAN CORPUSCULAR HEMOGLOBIN 29.8 pg (26.0-34.0); MEAN CORPUSCULAR HGB CONC 34.1 G/dL (31.0-37.0); MEAN CORPUSCULAR VOLUME 87 fL (80-100); MONOCYTES # (AUTO) 0.5 K/uL (0.1-1.0); MONOCYTES % (AUTO) 8.7 % (2.0-9.0); NEUTROPHILS # (AUTO) 3.1 K/uL (1.8-7.7); NEUTROPHILS % (AUTO) 54.5 % (40.0-70.0); PLATELET COUNT (AUTO) 232 K/uL (150-450); RED BLOOD CELL COUNT(AUTO) 4.33 MIL/uL (4.50-5.90); RED CELL DISTRIBUTION WIDTH 13.6 % (11.5-14.5)
[2021-09-26 20:13] LABS: ANION GAP 4 mmol/L (8-16); CALCIUM, TOTAL 8.8 mg/dL (8.8-10.5); CARBON DIOXIDE 30 mmol/L (22-29); CHLORIDE 104 mmol/L (98-107); CREATININE 1.06 mg/dL (0.60-1.30); GLOMERULAR FILTR. RATE CALC > 60 mL/min (>60); GLUCOSE,RANDOM 81 mg/dL (70-110); POTASSIUM 4.3 mmol/L (3.5-5.1); SODIUM SERUM 138 mmol/L (136-145); UREA NITROGEN, BLOOD 22 mg/dL (7-18)
[2021-09-26 20:18] LABS: ALANINE AMINOTRANSFERASE 17 U/L (12-78); ALBUMIN 3.1 g/dL (3.4-5.0); ALKALINE PHOSPHATASE 87 U/L (46-116); ASPARTATE AMINOTRANSFERASE 9 U/L (15-37); BILIRUBIN,TOTAL 0.2 mg/dL (0.1-1.0); TOTAL PROTEIN, SERUM 6.9 g/dL (6.4-8.2); VALPROIC ACID 71 mcg/mL (50-100)
[2021-09-26 21:43] VITALS: BP 122/68
== END 2021-09-26 22:28 ==
LOC: EMS 19:18
DX: G40.909 Epilepsy, unspecified, not intractable, without status epilepticus (principal); R11.2 Nausea with vomiting, unspecified; J45.909 Unspecified asthma, uncomplicated; F41.9 Anxiety disorder, unspecified; F31.9 Bipolar disorder, unspecified; K21.9 Gastro-esophageal reflux disease without esophagitis; I10 Essential (primary) hypertension; F20.9 Schizophrenia, unspecified; F17.210 Nicotine dependence, cigarettes, uncomplicated; Z91.011 Allergy to milk products; Z91.018 Allergy to other foods
CPT/HCPCS: 36415; 80053; 80164; 85025; 96361; 96374; 96375; 99284; J0712; J2405; J7030; J7060

== ENCOUNTER 2021-10-15 02:29 | Emergency (ER) | payer MEDICARE, SELFPAY ==
[~2021-10-15] VITALS: Ht 162.6 cm; Wt 70.5 kg
[~2021-10-15 02:29] MED LIST changes: -DIVA-111 PO; -ESCI5TAB16 PO; -RISP1TAB48 PO
[2021-10-15] MEDS ORDERED: LORazepam 1 MG TABLET PO ONE (13:00)
[2021-10-15 15:01] VITALS: BP 112/70
[2021-10-15 15:02] LABS: COVID AG,FIA SOURCE NASOPHARYNGEAL
== END 2021-10-15 16:16 | disposition home or self-care (01) ==
LOC: EMS 02:30
DX: T74.21XA Adult sexual abuse, confirmed, initial encounter (principal); Z79.899 Other long term (current) drug therapy; Z88.8 Allergy status to other drugs, medicaments and biological substances
CPT/HCPCS: Z7610

== ENCOUNTER 2021-11-01 16:33 | Emergency (ER) | payer MEDICARE, MEDICAID ==
[~2021-11-01] VITALS: Ht 160 cm; Wt 59.1 kg
[2021-11-01] MEDS ORDERED: LORazepam 1 MG TABLET ONE (20:09)
[2021-11-01] MEDS ORDERED: HALOPERIDOL 5 MG TABLET ONE (20:10)
[2021-11-01] MEDS ORDERED: HALOPERIDOL 5 MG TABLET PO ONE (20:15)
[2021-11-01] MEDS ORDERED: LORazepam 1 MG TABLET PO ONE (20:15)
[2021-11-01 20:32] LABS: COVID AG,FIA SOURCE NASAL SWAB
[2021-11-01 21:17] VITALS: BP 118/73
== END 2021-11-01 21:23 | disposition home or self-care (01) ==
LOC: EMS 16:52
DX: F25.1 Schizoaffective disorder, depressive type (principal); R45.851 Suicidal ideations; F41.9 Anxiety disorder, unspecified; J45.909 Unspecified asthma, uncomplicated; F31.9 Bipolar disorder, unspecified; I10 Essential (primary) hypertension; E03.9 Hypothyroidism, unspecified; F15.90 Other stimulant use, unspecified, uncomplicated; Z87.19 Personal history of other diseases of the digestive system; Z86.69 Personal history of other diseases of the nervous system and sense organs; Z98.890 Other specified postprocedural states; Z91.011 Allergy to milk products; Z91.018 Allergy to other foods; Z20.822 Contact with and (suspected) exposure to COVID-19
CPT/HCPCS: 99285; Z7502; Z7610